=== PATIENT | female | born 1960 | race Caucasian/White ===

== ENCOUNTER 2019-06-10 00:20 | Emergency (ER) | payer BC, MEDICARE ==
[2019-06-10 01:08] VITALS: BP 147/78; PULSE 74
[2019-06-10] MEDS ORDERED: HYDROmorphone 0.5 MG/0.5 ML Syringe IVPUSH ONE ×2 (01:08→02:49)
[2019-06-10] MEDS ORDERED: Ondansetron 4 MG/2 ML SDV IVPUSH ONE ×2 (01:08→03:18)
[2019-06-10] MEDS ORDERED: Sodium Chloride 0.9% 1,000 ML IV SCH ×2 (01:15→03:00)
[2019-06-10] MEDS ORDERED: Pantoprazole 40 MG Tab.CR PO ONE (02:49)
--- NOTE | 2019-06-10 06:50 | EDM.PDOC ---
<Heather Vargas - Last Filed: 06/10/19 06:45> ED HPI GENERAL MEDICAL PROBLEM - General Chief Complaint: Abdominal Pain Stated Complaint: UPPER ABDOMINAL PAIN Time Seen by Provider: 06/10/19 00:55 Source of Information: Reports: Patient History Limitations: Reports: No Limitations - History of Present Illness INITIAL COMMENTS - FREE TEXT/NARRATIVE: pt arrived having upper abdomanal pain. She had gone out to eat and she had chicken breasr and baked potatoe. She developed upper abdomanal pain which was fairly severe. She did not vomit but she was very nauseated. Onset: Today, Sudden Duration: Hour(s): Location: Reports: Abdomen Associated Symptoms: Reports: Nausea/Vomiting Middle Abdomen Pain Score (Numeric/FACES): 4 - Related Data Allergies Allergy/AdvReac Type Severity Reaction Status Date / Time No Known Allergies Allergy Verified 06/10/18 23:30 Home Meds: Home Meds busPIRone [Buspar] 10 mg PO BID 06/08/13 [History] Ascorbic Acid [C-1000] 1,000 mg PO DAILY 03/25/14 [History] Calcium Carbonate/Vitamin D3 [Calcium Carbonate/Vitamin D 1250 MG-200 Unit] 1 tab PO DAILY 03/25/14 [History] Multivitamin W/Iron, Minerals [Flintstones Complete] 1 each PO DAILY 03/25/14 [ History] Diltiazem HCl [Dilt-Xr] 180 mg PO DAILY 08/06/16 [History] Pantoprazole [Protonix] 40 mg PO DAILY 08/06/16 [History] methIMAzole [Methimazole] 5 mg PO DAILY 08/06/16 [History] Aspirin 325 mg PO DAILY 06/10/19 [History] Past Medical History HEENT History: Reports: Cataract, Impaired Vision Cardiovascular History: Reports: Afib, Hypertension Other Cardiovascular History: new onset afib 09/07/15. Musculoskeletal History: Reports: Fracture Psychiatric History: Reports: Anxiety Endocrine/Metabolic History: Reports: Other (See Below) Other Endocrine/Metabolic History: Graves Disease Dermatologic History: Reports: Cellulitis - Infectious Disease History Infectious Disease History: Reports: Chicken Pox - Past Surgical History HEENT Surgical History: Reports: Other (See Below) Social & Family History - Family History Family Medical History: Noncontributory - Tobacco Use Smoking Status *Q: Never Smoker - Caffeine Use Caffeine Use: Reports: Coffee, Soda Caffeine Use Comment: once in a while for coffee and pop - Recreational Drug Use Recreational Drug Use: No - Living Situation & Occupation Living situation: Reports: Occupation: Employed ED ROS GENERAL - Review of Systems Review Of Systems: See Below Constitutional: Reports: No Symptoms HEENT: Reports: No Symptoms Respiratory: Reports: No Symptoms Cardiovascular: Reports: No Symptoms Endocrine: Reports: No Symptoms GI/Abdominal: Reports: Abdominal Pain, Nausea, Other (pt developed acute pain in the upper abdoman. On arrival she was rating this at a 6-7. ) ED EXAM, GI/ABD - Physical Exam Exam: See Below Text/Narrative:: pt arrived with pain in the upper abdoman. She was still quite uncomfortable when she arrived. She was nauseated. Exam Limited By: No Limitations General Appearance: Alert, Anxious, Moderate Distress Ears: Normal TMs Nose: Normal Inspection Throat/Mouth: Normal Inspection Head: Atraumatic Neck: Normal Inspection Respiratory/Chest: No Respiratory Distress Cardiovascular: Regular Rate, Rhythm GI/Abdominal Exam: Tender, Other (pt is tender in the upper abdoman. The rest of the abdoman was neg. ) (Female) Exam: Deferred Rectal (Female) Exam: Deferred Back Exam: Normal Inspection Extremities: Normal Inspection Neurological: Alert, Oriented, Normal Cognition Psychiatric: Normal Affect Course - Vital Signs Last Recorded V/S: Last Vital Signs Temp 95.6 F 06/10/19 01:00 Pulse 74 06/10/19 01:00 Resp 18 06/10/19 01:00 BP 147/78 H 06/10/19 01:00 Pulse Ox 97 06/10/19 01:00 - Orders/Labs/Meds Orders: Active Orders 24 hr Category Date Time Status Sodium Chloride 0.9% [Normal Saline] 1,000 ml Med 06/10/19 01:15 Active IV ASDIRECTED Sodium Chloride 0.9% [Normal Saline] 1,000 ml Med 06/10/19 03:00 Active IV ASDIRECTED Medication Orders Sodium Chloride (Normal Saline) 1,000 mls @ 999 mls/hr IV ASDIRECTED JUAN LUIS Last Admin: 06/10/19 01:46 Dose: 999 mls/hr Sodium Chloride (Normal Saline) 1,000 mls @ 999 mls/hr IV ASDIRECTED JUAN LUIS Last Admin: 06/10/19 03:05 Dose: 999 mls/hr Labs: Laboratory Tests 06/10/19 06/10/19 06/10/19 Range/Units 01:07 01:45 01:45 WBC 5.9 (4.5-11.0) K/uL RBC 4.92 (3.30-5.50) M/uL Hgb 13.6 (12.0-15.0) g/dL Hct 42.2 (36.0-48.0) % MCV 86 (80-98) fL MCH 28 (27-31) pg MCHC 32 (32-36) % Plt Count 189 (150-400) K/uL Neut % (Auto) 70 H (36-66) % Lymph % (Auto) 15 L (24-44) % [place] % (Auto) 12 H (2-6) % Eos % (Auto) 3 (2-4) % Baso % (Auto) 1 (0-1) % Sodium 140 (140-148) mmol/L Potassium 3.5 L (3.6-5.2) mmol/L Chloride 104 (100-108) mmol/L Carbon Dioxide 28 (21-32) mmol/L Anion Gap 11.5 (5.0-14.0) mmol/L BUN 18 (7-18) mg/dL Creatinine 0.9 (0.6-1.0) mg/dL Est Cr Clr Drug Dosing 62.06 mL/min Estimated GFR (MDRD) > 60 (>60) Glucose 111 H (74-106) mg/dL Calcium 9.0 (8.5-10.1) mg/dL Total Bilirubin 0.4 D (0.2-1.0) mg/dL Direct Bilirubin (0.0-0.2) mg/dL Indirect Bilirubin AST 28 (15-37) U/L ALT 31 (12-78) U/L Alkaline Phosphatase 155 H (46-116) U/L C-Reactive Protein (0.0-0.3) mg/dL Total Protein 7.7 (6.4-8.2) g/dL Albumin 3.8 (3.4-5.0) g/dL Globulin 3.9 H (2.3-3.5) g/dL Albumin/Globulin Ratio 1.0 L (1.2-2.2) Amylase (25-115) U/L Lipase (73-393) U/L Urine Color Yellow (YELLOW) Urine Appearance Clear (CLEAR) Urine pH 6.0 (5.0-8.0) Ur Specific [place] >= 1.030 (1.008-1.030) Urine Protein Negative (NEGATIVE) mg/dL Urine Glucose (UA) Negative (NEGATIVE) mg/dL Urine Ketones Negative (NEGATIVE) mg/dL Urine Occult Blood Negative (NEGATIVE) Urine Nitrite Negative (NEGATIVE) Urine Bilirubin Negative (NEGATIVE) Urine Urobilinogen 0.2 (0.2-1.0) EU/dL Ur Leukocyte Esterase Negative (NEGATIVE) Urine RBC 0-5 (0-5) Urine WBC 0-5 (0-5) Ur Epithelial Cells Few Amorphous Sediment Not seen Urine Bacteria Few Urine Mucus Not seen 06/10/19 06/10/19 06/10/19 Range/Units 01:45 02:50 05:31 WBC (4.5-11.0) K/uL RBC (3.30-5.50) M/uL Hgb (12.0-15.0) g/dL Hct (36.0-48.0) % MCV (80-98) fL MCH (27-31) pg MCHC (32-36) % Plt Count (150-400) K/uL Neut % (Auto) (36-66) % Lymph % (Auto) (24-44) % [place] % (Auto) (2-6) % Eos % (Auto) (2-4) % Baso % (Auto) (0-1) % Sodium (140-148) mmol/L Potassium (3.6-5.2) mmol/L Chloride (100-108) mmol/L Carbon Dioxide (21-32) mmol/L Anion Gap (5.0-14.0) mmol/L BUN (7-18) mg/dL Creatinine (0.6-1.0) mg/dL Est Cr Clr Drug Dosing mL/min Estimated GFR (MDRD) (>60) Glucose (74-106) mg/dL Calcium (8.5-10.1) mg/dL Total Bilirubin (0.2-1.0) mg/dL Direct Bilirubin (0.0-0.2) mg/dL Indirect Bilirubin AST (15-37) U/L ALT (12-78) U/L Alkaline Phosphatase (46-116) U/L C-Reactive Protein 0.27 (0.0-0.3) mg/dL Total Protein (6.4-8.2) g/dL Albumin (3.4-5.0) g/dL Globulin (2.3-3.5) g/dL Albumin/Globulin Ratio (1.2-2.2) Amylase 59 (25-115) U/L Lipase 125 83 (73-393) U/L Urine Color (YELLOW) Urine Appearance (CLEAR) Urine pH (5.0-8.0) Ur Specific [place] (1.008-1.030) Urine Protein (NEGATIVE) mg/dL Urine Glucose (UA) (NEGATIVE) mg/dL Urine Ketones (NEGATIVE) mg/dL Urine Occult Blood (NEGATIVE) Urine Nitrite (NEGATIVE) Urine Bilirubin (NEGATIVE) Urine Urobilinogen (0.2-1.0) EU/dL Ur Leukocyte Esterase (NEGATIVE) Urine RBC (0-5) Urine WBC (0-5) Ur Epithelial Cells Amorphous Sediment Urine Bacteria Urine Mucus 06/10/19 Range/Units 05:31 WBC (4.5-11.0) K/uL RBC (3.30-5.50) M/uL Hgb (12.0-15.0) g/dL Hct (36.0-48.0) % MCV (80-98) fL MCH (27-31) pg MCHC (32-36) % Plt Count (150-400) K/uL Neut % (Auto) (36-66) % Lymph % (Auto) (24-44) % [place] % (Auto) (2-6) % Eos % (Auto) (2-4) % Baso % (Auto) (0-1) % Sodium (140-148) mmol/L Potassium (3.6-5.2) mmol/L Chloride (100-108) mmol/L Carbon Dioxide (21-32) mmol/L Anion Gap (5.0-14.0) mmol/L BUN (7-18) mg/dL Creatinine (0.6-1.0) mg/dL Est Cr Clr Drug Dosing mL/min Estimated GFR (MDRD) (>60) Glucose (74-106) mg/dL Calcium (8.5-10.1) mg/dL Total Bilirubin 0.4 (0.2-1.0) mg/dL Direct Bilirubin 0.12 (0.0-0.2) mg/dL Indirect Bilirubin 0.28 AST 24 (15-37) U/L ALT 26 (12-78) U/L Alkaline Phosphatase 130 H (46-116) U/L C-Reactive Protein (0.0-0.3) mg/dL Total Protein 6.6 (6.4-8.2) g/dL Albumin 3.2 L (3.4-5.0) g/dL Globulin 3.4 (2.3-3.5) g/dL Albumin/Globulin Ratio 0.9 L (1.2-2.2) Amylase (25-115) U/L Lipase (73-393) U/L Urine Color (YELLOW) Urine Appearance (CLEAR) Urine pH (5.0-8.0) Ur Specific [place] (1.008-1.030) Urine Protein (NEGATIVE) mg/dL Urine Glucose (UA) (NEGATIVE) mg/dL Urine Ketones (NEGATIVE) mg/dL Urine Occult Blood (NEGATIVE) Urine Nitrite (NEGATIVE) Urine Bilirubin (NEGATIVE) Urine Urobilinogen (0.2-1.0) EU/dL Ur Leukocyte Esterase (NEGATIVE) Urine RBC (0-5) Urine WBC (0-5) Ur Epithelial Cells Amorphous Sediment Urine Bacteria Urine Mucus Meds: Medications Generic Name Dose Route Start Last Admin Trade Name Freq PRN Reason Stop Dose Admin Sodium Chloride 1,000 mls @ 999 mls/hr 06/10/19 01:15 06/10/19 01:46 Normal Saline IV 999 mls/hr ASDIRECTED JUAN LUIS Administration Sodium Chloride 1,000 mls @ 999 mls/hr 06/10/19 03:00 06/10/19 03:05 Normal Saline IV 999 mls/hr ASDIRECTED JUAN LUIS Administration Discontinued Medications Generic Name Dose Route Start Last Admin Trade Name Freq PRN Reason Stop Dose Admin Hydromorphone HCl 0.5 mg 06/10/19 01:08 06/10/19 01:47 Dilaudid IVPUSH 06/10/19 01:09 0.5 mg ONETIME ONE Administration Hydromorphone HCl 0.5 mg 06/10/19 02:49 06/10/19 03:05 Dilaudid IVPUSH 06/10/19 02:50 0.5 mg ONETIME ONE Administration Ondansetron HCl 4 mg 06/10/19 01:08 06/10/19 01:47 Zofran IVPUSH 06/10/19 01:09 4 mg ONETIME ONE Administration Ondansetron HCl 4 mg 06/10/19 03:18 Zofran IVPUSH 06/10/19 03:19 ONETIME ONE Pantoprazole Sodium 40 mg 06/10/19 02:49 06/10/19 03:05 Protonix PO 06/10/19 02:50 40 mg DAILY ONE Administration - Re-Assessments/Exams Free Text/Narrative Re-Assessment/Exam: 06/10/19 06:51 pt had normal liver enzymes except her alk phos was mildly up. Her lipase and amylase was normal. Her wbc was not elevated. She is pn protonix. 06/10/19 06:52 her liver enzymes were repeated this am as was the lipase both were normal. Departure - Departure Disposition: Home, Self-Care 01 Clinical Impression: Abdominal pain Qualifiers: Abdominal location: epigastric Qualified Code(s): R10.13 - Epigastric pain - Discharge Information Referrals: Alma Delia Olivares RN [Primary Care Provider] - Forms: ED Department Discharge Additional Instructions: Outpatient will call you for the test time Brittany Miller will receive the test results and will follow-up with you and coordinate care as needed, call return to the emergency department worsening of symptoms <OfficerMichael - Last Filed: 06/10/19 08:16> Departure - Departure Time of Disposition: 08:15 Condition: Fair - Assessment/Plan Plan: Assessment Acuity = acute Site and laterality = epigastric pain Etiology = unknown etiology Manifestations = none Location of injury = Home Lab values = CBC, CMP, urinalysis unremarkable ultrasound reveals gallstones with a 3.8 mm thick gallbladder wall 6 mm gallbladder duct Plan She remained pain-free at this time abdominal exam is benign, I did review lab work and ultrasound results with her plan is to perform a HIDA scan which will be done this week she. Results will go to her primary care provider Brittany Miller for review and further evaluation as needed, contacted primary care provider is nurse so they are aware of upcoming test. This note was dictated using [employer] voice recognition software please call with any questions on syntax or grammar.
--- NOTE | 2019-06-10 07:17 | CRLUS ---
INDICATION: Upper abdominal pain. COMPARISON: None. TECHNIQUE: Ultrasound examination of the right upper quadrant of the abdomen. FINDINGS: No focal hepatic pathology. Liver is measuring 16.5 cm in maximum vertical dimension. Cholelithiasis. Nondilated common bile duct measuring 6 mm in diameter. No evidence of choledocholithiasis. No pericholecystic fluid collections. Sonographic Edwards`s sign is negative. No pancreatic pathology. Right kidney is measuring 9.8 x 6 x 4.5 cm without any obstructive uropathy or perinephric pathology. Normal echogenic pattern of the renal cortex. Inferior vena cava and upper abdominal aorta are unremarkable. IMPRESSION: Cholelithiasis. Dictated by Moris Davis MD @ Jun 10 2019 7:12AM Signed by Dr. Moris Davis @ Jun 10 2019 7:15AM
== END 2019-06-10 08:29 | disposition home or self-care (01) ==
LOC: JP.ED 00:20
DX: R10.13 Epigastric pain (principal); I10 Essential (primary) hypertension; Z79.899 Other long term (current) drug therapy
CPT/HCPCS: 36415; 76705; 80053; 80076; 81001; 82150; 83690; 85025; 86140; 96361; 96374; 96375; 96376; 99284; A9270; J1170; J2405; J7030

== ENCOUNTER 2020-03-07 15:45 | Observation (INO) | payer BC ==
[2020-03-07] MEDS ORDERED: HYDROmorphone 1 MG/ML Syringe IM ONE (16:58)
[2020-03-07] MEDS ORDERED: LORazepam 1 MG Tab PO ONE (16:58)
--- NOTE | 2020-03-07 17:01 | EDM.PDOC ---
ED HPI GENERAL MEDICAL PROBLEM - General Chief Complaint: Back Pain or Injury Stated Complaint: MEDICAL VIA [facility] Time Seen by Provider: 03/07/20 16:45 Source of Information: Reports: Patient, Family, RN Notes Reviewed History Limitations: Reports: No Limitations - History of Present Illness INITIAL COMMENTS - FREE TEXT/NARRATIVE: 60-year-old female presents emergency department a complaint of low back pain, she arrived by EMS services was given 100 mcg of fentanyl with minimal relief. She was evaluated in clinic 3 days prior for low back pain there is a specific injury she was out trimming the grass admits that she does not bend her knees and bends over at the waist and possibly overdid it. She is using a combination of OxyContin provided by her primary care provider as well as Aleve for the low back pain in combination with Flexeril. She states she has not had much improvement in the pain has gotten significantly worse. She also states she recently had fevers and chills over the last couple of days and is complaining of some chest pain - Related Data Allergies Allergy/AdvReac Type Severity Reaction Status Date / Time No Known Allergies Allergy Verified 06/10/18 23:30 Home Meds: Home Meds busPIRone [Buspar] 10 mg PO BID 06/08/13 [History] Ascorbic Acid [C-1000] 1,000 mg PO DAILY 03/25/14 [History] Calcium Carbonate/Vitamin D3 [Calcium Carbonate/Vitamin D 1250 MG-200 Unit] 1 tab PO DAILY 03/25/14 [History] Multivit with Iron,Minerals [Flintstones Complete] 1 each PO DAILY 03/25/14 [History] Pantoprazole [Protonix] 40 mg PO DAILY 08/06/16 [History] dilTIAZem HCL [Dilt-Xr] 180 mg PO DAILY 08/06/16 [History] Aspirin 325 mg PO DAILY 06/10/19 [History] Cyclobenzaprine [Flexeril] 10 mg PO TID 03/07/20 [History] Levothyroxine 200 mcg PO ACBREAKFAST 03/07/20 [History] oxyCODONE HCl [Oxycontin] 5 mg PO Q4HR PRN 03/07/20 [History] Past Medical History HEENT History: Reports: Cataract, Impaired Vision Cardiovascular History: Reports: Afib, Hypertension Other Cardiovascular History: new onset afib 09/07/15. Gastrointestinal History: Reports: Cholelithiasis Musculoskeletal History: Reports: Back Pain, Chronic, Fracture Psychiatric History: Reports: Anxiety Endocrine/Metabolic History: Reports: Hypothyroidism, Other (See Below) Other Endocrine/Metabolic History: Graves Disease Dermatologic History: Reports: Cellulitis - Infectious Disease History Infectious Disease History: Reports: Chicken Pox - Past Surgical History HEENT Surgical History: Reports: Other (See Below) Musculoskeletal Surgical History: Reports: Knee Replacement Social & Family History - Family History Family Medical History: Noncontributory - Tobacco Use Smoking Status *Q: Never Smoker Second Hand Smoke Exposure: No - Caffeine Use Caffeine Use: Reports: Coffee, Soda Caffeine Use Comment: once in a while for coffee and pop - Recreational Drug Use Recreational Drug Use: No - Living Situation & Occupation Living situation: Reports: Occupation: Employed ED ROS GENERAL - Review of Systems Review Of Systems: See Below Constitutional: Reports: No Symptoms HEENT: Reports: No Symptoms Respiratory: Reports: No Symptoms Cardiovascular: Reports: Chest Pain GI/Abdominal: Reports: No Symptoms : Reports: No Symptoms Musculoskeletal: Reports: Back Pain Skin: Reports: No Symptoms ED EXAM,LOWER BACK PAIN/INJURY - Physical Exam Exam: See Below Exam Limited By: No Limitations General Appearance: Alert, WD/WN, No Apparent Distress Neck: Normal Inspection, Supple, Non-Tender, Full Range of Motion Respiratory/Chest: No Respiratory Distress, Lungs Clear, Normal Breath Sounds, No Accessory Muscle Use, Chest Non-Tender Cardiovascular: Regular Rate, Rhythm, No Murmur GI/Abdominal: Soft, Non-Tender Back Exam: Normal Inspection, Decreased Range of Motion, Muscle Spasm, Paraspinal Tenderness. No: CVA Tenderness (R), CVA Tenderness (L), Vertebral Tenderness Extremities: Normal Inspection, No Pedal Edema Course - Vital Signs Last Recorded V/S: Last Vital Signs Temp 100.1 F 03/07/20 15:50 Pulse 95 03/07/20 15:50 Resp 12 03/07/20 18:05 BP 104/53 L 03/07/20 18:05 Pulse Ox 98 03/07/20 18:05 - Orders/Labs/Meds Orders: Active Orders 24 hr Category Date Time Status Cardiac Monitoring [RC] .As Directed Care 03/07/20 16:57 Active EKG Documentation Completion [RC] ASDIRECTED Care 03/07/20 16:57 Active Peripheral IV Care [RC] . DIRECTED Care 03/07/20 18:59 Ordered Chest 2V [CR] Stat Exams 03/07/20 16:57 Taken CULTURE URINE [RM] Urgent Lab 03/07/20 19:01 Ordered Doxycycline [Vibramycin] 100 mg Med 03/07/20 18:59 Ordered Sodium Chloride 0.9% [Normal Saline] 100 ml IV ONETIME Sodium Chloride 0.9% [Saline Flush] Med 03/07/20 18:59 Ordered 10 ml FLUSH ASDIRECTED PRN Peripheral IV Insertion Adult [OM.PC] Urgent Oth 03/07/20 18:59 Ordered EKG 12 Lead [EK] Stat Ther 03/07/20 16:57 Ordered Medication Orders Doxycycline Hyclate 100 mg/ (Sodium Chloride) 100 mls @ 100 mls/hr IV ONETIME ONE Stop: 03/07/20 19:58 Sodium Chloride (Saline Flush) 10 ml FLUSH ASDIRECTED PRN PRN Reason: Keep Vein Open Labs: Laboratory Tests 03/07/20 03/07/20 03/07/20 Range/Units 17:12 17:12 17:12 WBC 2.2 L (4.5-11.0) K/uL RBC 4.77 (3.30-5.50) M/uL Hgb 13.2 (12.0-15.0) g/dL Hct 40.2 (36.0-48.0) % MCV 84 (80-98) fL MCH 28 (27-31) pg MCHC 33 (32-36) % Plt Count 93 L (150-400) K/uL Add Manual Diff Yes Neutrophils % (Manual) 51 (36-66) % Band Neutrophils % 14 H (5-11) % Lymphocytes % (Manual) 15 L (24-44) % Monocytes % (Manual) 20 H (2-6) % Polychromasia Sodium 130 L (140-148) mmol/L Potassium 3.4 L (3.6-5.2) mmol/L Chloride 94 L (100-108) mmol/L Carbon Dioxide 27 (21-32) mmol/L Anion Gap 12.4 (5.0-14.0) mmol/L BUN 16 (7-18) mg/dL Creatinine 1.0 (0.6-1.0) mg/dL Est Cr Clr Drug Dosing 54.07 mL/min Estimated GFR (MDRD) 57 L (>60) Glucose 108 H (74-106) mg/dL Lactic Acid 1.3 (0.4-2.0) mmol/L Calcium 8.7 (8.5-10.1) mg/dL Total Bilirubin 2.7 H D (0.2-1.0) mg/dL AST 33 (15-37) U/L ALT 47 D (12-78) U/L Alkaline Phosphatase 152 H (46-116) U/L Troponin I < 0.017 (0.000-0.056) ng/mL Total Protein 7.1 (6.4-8.2) g/dL Albumin 3.0 L (3.4-5.0) g/dL Globulin 4.1 H (2.3-3.5) g/dL Albumin/Globulin Ratio 0.7 L (1.2-2.2) Lipase 59 L (73-393) U/L Urine Color (YELLOW) Urine Appearance (CLEAR) Urine pH (5.0-8.0) Ur Specific [place] (1.008-1.030) Urine Protein (NEGATIVE) mg/dL Urine Glucose (UA) (NEGATIVE) mg/dL Urine Ketones (NEGATIVE) mg/dL Urine Occult Blood (NEGATIVE) Urine Nitrite (NEGATIVE) Urine Bilirubin (NEGATIVE) Urine Urobilinogen (0.2-1.0) EU/dL Ur Leukocyte Esterase (NEGATIVE) Urine RBC (0-5) Urine WBC (0-5) Ur Epithelial Cells Amorphous Sediment Urine Bacteria Urine Mucus 03/07/20 Range/Units 17:22 WBC (4.5-11.0) K/uL RBC (3.30-5.50) M/uL Hgb (12.0-15.0) g/dL Hct (36.0-48.0) % MCV (80-98) fL MCH (27-31) pg MCHC (32-36) % Plt Count (150-400) K/uL Add Manual Diff Neutrophils % (Manual) (36-66) % Band Neutrophils % (5-11) % Lymphocytes % (Manual) (24-44) % Monocytes % (Manual) (2-6) % Polychromasia Sodium (140-148) mmol/L Potassium (3.6-5.2) mmol/L Chloride (100-108) mmol/L Carbon Dioxide (21-32) mmol/L Anion Gap (5.0-14.0) mmol/L BUN (7-18) mg/dL Creatinine (0.6-1.0) mg/dL Est Cr Clr Drug Dosing mL/min Estimated GFR (MDRD) (>60) Glucose (74-106) mg/dL Lactic Acid (0.4-2.0) mmol/L Calcium (8.5-10.1) mg/dL Total Bilirubin (0.2-1.0) mg/dL AST (15-37) U/L ALT (12-78) U/L Alkaline Phosphatase (46-116) U/L Troponin I (0.000-0.056) ng/mL Total Protein (6.4-8.2) g/dL Albumin (3.4-5.0) g/dL Globulin (2.3-3.5) g/dL Albumin/Globulin Ratio (1.2-2.2) Lipase (73-393) U/L Urine Color [place] A (YELLOW) Urine Appearance Slightly cloudy A (CLEAR) Urine pH 6.0 (5.0-8.0) Ur Specific [place] 1.015 (1.008-1.030) Urine Protein 100 H (NEGATIVE) mg/dL Urine Glucose (UA) Negative (NEGATIVE) mg/dL Urine Ketones Negative (NEGATIVE) mg/dL Urine Occult Blood Small H (NEGATIVE) Urine Nitrite Negative (NEGATIVE) Urine Bilirubin Small H (NEGATIVE) Urine Urobilinogen 2.0 H (0.2-1.0) EU/dL Ur Leukocyte Esterase Negative (NEGATIVE) Urine RBC 0-5 (0-5) Urine WBC 5-10 H (0-5) Ur Epithelial Cells Moderate Amorphous Sediment Not seen Urine Bacteria Many Urine Mucus Not seen Meds: Medications Generic Name Dose Route Start Last Admin Trade Name Freq PRN Reason Stop Dose Admin Doxycycline Hyclate 100 mg/ 100 mls @ 100 mls/hr 03/07/20 18:59 Sodium Chloride IV 03/07/20 19:58 ONETIME ONE Sodium Chloride 10 ml 03/07/20 18:59 Saline Flush FLUSH ASDIRECTED PRN Keep Vein Open Discontinued Medications Generic Name Dose Route Start Last Admin Trade Name Freq PRN Reason Stop Dose Admin Hydromorphone HCl 1 mg 03/07/20 16:58 03/07/20 17:07 Dilaudid IM 03/07/20 16:59 1 mg ONETIME ONE Administration Ketorolac Tromethamine 60 mg 03/07/20 18:25 03/07/20 18:31 Toradol IM 03/07/20 18:26 60 mg ONETIME ONE Administration Lorazepam 1 mg 03/07/20 16:58 03/07/20 17:06 Ativan PO 03/07/20 16:59 1 mg ONETIME ONE Administration Departure - Departure Time of Disposition: 19:02 Disposition: Admitted As Inpatient 68 Condition: Fair Clinical Impression: Tick bite Qualifiers: Encounter type: initial encounter Qualified Code(s): W57.XXXA - Bitten or stung by nonvenomous insect and other nonvenomous arthropods, initial encounter - Discharge Information Referrals: PCP,None [Primary Care Provider] - Forms: ED Department Discharge Sepsis Event Note (ED) - Evaluation Sepsis Screening Result: No Definite Risk - Focused Exam Vital Signs: Vital Signs Temp Pulse Resp BP Pulse Ox 03/07/20 18:05 12 104/53 L 98 03/07/20 16:53 12 113/50 L 98 03/07/20 15:50 100.1 F 95 20 113/50 L 98 - My Orders Last 24 Hours: My Active Orders 03/07/20 16:57 Cardiac Monitoring [RC] .As Directed EKG Documentation Completion [RC] ASDIRECTED Chest 2V [CR] Stat EKG 12 Lead [EK] Stat 03/07/20 18:59 Peripheral IV Care [RC] . DIRECTED Doxycycline [Vibramycin] 100 mg Sodium Chloride 0.9% [Normal Saline] 100 ml IV ONETIME Sodium Chloride 0.9% [Saline Flush] 10 ml FLUSH ASDIRECTED PRN Peripheral IV Insertion Adult [OM.PC] Urgent 03/07/20 19:01 CULTURE URINE [RM] Urgent - Assessment/Plan Last 24 Hours: My Active Orders 03/07/20 16:57 Cardiac Monitoring [RC] .As Directed EKG Documentation Completion [RC] ASDIRECTED Chest 2V [CR] Stat EKG 12 Lead [EK] Stat 03/07/20 18:59 Peripheral IV Care [RC] . DIRECTED Doxycycline [Vibramycin] 100 mg Sodium Chloride 0.9% [Normal Saline] 100 ml IV ONETIME Sodium Chloride 0.9% [Saline Flush] 10 ml FLUSH ASDIRECTED PRN Peripheral IV Insertion Adult [OM.PC] Urgent 03/07/20 19:01 CULTURE URINE [RM] Urgent Plan: Assessment Acuity = acute Site and laterality = tickborne illness Etiology = Ixodes scapularis Manifestations = none Location of injury = Home Lab values = WBC low at 2.2 consistent leukopenia platelets low at 93 consistent with thrombocytopenia lactic acid normal 1.3 total bilirubin elevated 2.7 consistent hyperbilirubinemia troponin was negative urinalysis reveals urobilinogen at 2.0 WBCs 10-20 consistent with pyuria cultures pending chest x- ray shows no acute process EKG demonstrates sinus rhythm no ST elevations or depression Plan Call discussed case with hospitalist on-call at 1850 kindly agreed to come and evaluate the patient in the emergency department for admission she has been given doxycycline 100 mg x 1 This note was dictated using [employer] voice recognition software please call with any questions on syntax or grammar.
[2020-03-07] MEDS ORDERED: Ketorolac 60 MG/2 ML SDV IM ONE (18:25)
[2020-03-07] MEDS ORDERED: Sodium Chloride 0.9% 10 ML Syringe FLUSH PRN (18:59)
[2020-03-07] MEDS ORDERED: Doxycycline 100 MG in Sodium Chloride 0.9% 100 ML IV ONE (18:59)
--- NOTE | 2020-03-07 20:05 | PCM.HP.2 ---
H&P History of Present Illness - General Date of Service: 03/07/20 Admit Problem/Dx: Admission Diagnosis/Problem Admission Diagnosis/Problem Human anaplasmosis Source of Information: Patient, Family, Provider History Limitations: Reports: No Limitations - History of Present Illness Initial Comments - Free Text/Narative: CC: My back hurt so bad HPI: Dianne presents to the emergency room today with several days of progressive back pain. Initially her pain was moderate in nature and achy. It started in her lower back. The pain started the day after she had been doing some yard work. The next day her pain had progressed to moderate so she went to her regular doctor. He prescribed OxyContin and cyclobenzaprine. Since that time her back pain has continued to worsen. She now has severe pain that starts in the middle of her back and radiates up into her upper back between the shoulder blades and her neck muscles as well as down into her buttocks. The pain was so severe that she could not get out of the chair without an extreme amount of exertion. Pain is achy. Pain pills and muscle relaxers are not helping much. No bowel or bladder incontinence. She has not had any fevers or chills at home. She has had nausea and a decreased appetite. She reports that she has diffuse myalgias as well. No cough, shortness of breath or diarrhea. She has had ticks crawling on her and a few of them have been stuck but none that she saw that were engorged. No other travel or sick contacts. No one else at home is sick. Work-up in the emergency room revealed a white blood cell count of 2000 and low platelets. Bilirubin is mildly elevated. No other obvious source for infection. Anaplasmosis is suspected on top of her acute lower back strain. She will be admitted for pain control and initiation of antibiotics. - Related Data Allergies/Adverse Reactions: Allergies Allergy/AdvReac Type Severity Reaction Status Date / Time No Known Allergies Allergy Verified 06/10/18 23:30 Home Medications: Home Meds busPIRone [Buspar] 10 mg PO BID 06/08/13 [History] Ascorbic Acid [C-1000] 1,000 mg PO DAILY 03/25/14 [History] Calcium Carbonate/Vitamin D3 [Calcium Carbonate/Vitamin D 1250 MG-200 Unit] 1 tab PO DAILY 03/25/14 [History] Multivit with Iron,Minerals [Flintstones Complete] 1 each PO DAILY 03/25/14 [History] Pantoprazole [Protonix] 40 mg PO DAILY 08/06/16 [History] dilTIAZem HCL [Dilt-Xr] 180 mg PO DAILY 08/06/16 [History] Aspirin 325 mg PO DAILY 06/10/19 [History] Cyclobenzaprine [Flexeril] 10 mg PO TID 03/07/20 [History] Levothyroxine 200 mcg PO ACBREAKFAST 03/07/20 [History] oxyCODONE HCl [Oxycontin] 5 mg PO Q4HR PRN 03/07/20 [History] Past Medical History HEENT History: Reports: Cataract, Impaired Vision Cardiovascular History: Reports: Afib, Hypertension Other Cardiovascular History: new onset afib 09/07/15. Gastrointestinal History: Reports: Cholelithiasis Musculoskeletal History: Reports: Back Pain, Chronic, Fracture Psychiatric History: Reports: Anxiety Endocrine/Metabolic History: Reports: Hypothyroidism, Other (See Below) Other Endocrine/Metabolic History: Graves Disease Dermatologic History: Reports: Cellulitis - Infectious Disease History Infectious Disease History: Reports: Chicken Pox - Past Surgical History HEENT Surgical History: Reports: Other (See Below) Musculoskeletal Surgical History: Reports: Knee Replacement Social & Family History - Family History Family Medical History: Noncontributory - Tobacco Use Smoking Status *Q: Never Smoker Second Hand Smoke Exposure: No - Caffeine Use Caffeine Use: Reports: Coffee, Soda Caffeine Use Comment: once in a while for coffee and pop - Alcohol Use Alcohol Use History: No - Recreational Drug Use Recreational Drug Use: No - Living Situation & Occupation Living situation: Reports: Occupation: Employed H&P Review of Systems - Review of Systems: Review Of Systems: See Below Free Text/Narrative: A complete 12 point review of systems was obtained. Pertinent positives and negatives are noted in the history of present illness. All other systems were reviewed and were negative except as noted. Exam - Exam Exam: See Below - Vital Signs Vital Signs: Last Vital Signs Temp 37.8 C 03/07/20 15:50 Pulse 95 03/07/20 15:50 Resp 12 03/07/20 18:05 BP 104/53 L 03/07/20 18:05 Pulse Ox 98 03/07/20 18:05 Weight: 163.293 kg - Exam Quality Assessment: No: Supplemental Oxygen General: Alert, Oriented, Cooperative. No: Mild Distress HEENT: Conjunctiva Clear, Mucosa Moist & [place] Neck: Trachea Midline. No: Lymphadenopathy Lungs: Clear to Auscultation, Normal Respiratory Effort Cardiovascular: Regular Rate, Regular Rhythm GI/Abdominal Exam: Normal Bowel Sounds, Soft, Non-Tender, No Distention Extremities: No Pedal Edema, Other (varicose veins ). No: Increased Warmth Skin: Warm, Dry. No: Rash Neuro Extensive - Mental Status: Alert, Oriented x3, Nl Response to Commands Neuro Extensive - Motor, Sensory, Reflexes: No: Dysarthria, Abnormal Motor, Tremor Psychiatric: Alert, Normal Affect - Patient Data Lab Results Last 24 hrs: Laboratory Results - last 24 hr 03/07/20 03/07/20 03/07/20 Range/Units 17:12 17:12 17:12 WBC 2.2 L (4.5-11.0) K/uL RBC 4.77 (3.30-5.50) M/uL Hgb 13.2 (12.0-15.0) g/dL Hct 40.2 (36.0-48.0) % MCV 84 (80-98) fL MCH 28 (27-31) pg MCHC 33 (32-36) % Plt Count 93 L (150-400) K/uL Add Manual Diff Yes Neutrophils % (Manual) 51 (36-66) % Band Neutrophils % 14 H (5-11) % Lymphocytes % (Manual) 15 L (24-44) % Monocytes % (Manual) 20 H (2-6) % Polychromasia Sodium 130 L (140-148) mmol/L Potassium 3.4 L (3.6-5.2) mmol/L Chloride 94 L (100-108) mmol/L Carbon Dioxide 27 (21-32) mmol/L Anion Gap 12.4 (5.0-14.0) mmol/L BUN 16 (7-18) mg/dL Creatinine 1.0 (0.6-1.0) mg/dL Est Cr Clr Drug Dosing 54.07 mL/min Estimated GFR (MDRD) 57 L (>60) Glucose 108 H (74-106) mg/dL Lactic Acid 1.3 (0.4-2.0) mmol/L Calcium 8.7 (8.5-10.1) mg/dL Total Bilirubin 2.7 H D (0.2-1.0) mg/dL AST 33 (15-37) U/L ALT 47 D (12-78) U/L Alkaline Phosphatase 152 H (46-116) U/L Troponin I < 0.017 (0.000-0.056) ng/mL Total Protein 7.1 (6.4-8.2) g/dL Albumin 3.0 L (3.4-5.0) g/dL Globulin 4.1 H (2.3-3.5) g/dL Albumin/Globulin Ratio 0.7 L (1.2-2.2) Lipase 59 L (73-393) U/L Urine Color (YELLOW) Urine Appearance (CLEAR) Urine pH (5.0-8.0) Ur Specific [place] (1.008-1.030) Urine Protein (NEGATIVE) mg/dL Urine Glucose (UA) (NEGATIVE) mg/dL Urine Ketones (NEGATIVE) mg/dL Urine Occult Blood (NEGATIVE) Urine Nitrite (NEGATIVE) Urine Bilirubin (NEGATIVE) Urine Urobilinogen (0.2-1.0) EU/dL Ur Leukocyte Esterase (NEGATIVE) Urine RBC (0-5) Urine WBC (0-5) Ur Epithelial Cells Amorphous Sediment Urine Bacteria Urine Mucus 03/07/20 Range/Units 17:22 WBC (4.5-11.0) K/uL RBC (3.30-5.50) M/uL Hgb (12.0-15.0) g/dL Hct (36.0-48.0) % MCV (80-98) fL MCH (27-31) pg MCHC (32-36) % Plt Count (150-400) K/uL Add Manual Diff Neutrophils % (Manual) (36-66) % Band Neutrophils % (5-11) % Lymphocytes % (Manual) (24-44) % Monocytes % (Manual) (2-6) % Polychromasia Sodium (140-148) mmol/L Potassium (3.6-5.2) mmol/L Chloride (100-108) mmol/L Carbon Dioxide (21-32) mmol/L Anion Gap (5.0-14.0) mmol/L BUN (7-18) mg/dL Creatinine (0.6-1.0) mg/dL Est Cr Clr Drug Dosing mL/min Estimated GFR (MDRD) (>60) Glucose (74-106) mg/dL Lactic Acid (0.4-2.0) mmol/L Calcium (8.5-10.1) mg/dL Total Bilirubin (0.2-1.0) mg/dL AST (15-37) U/L ALT (12-78) U/L Alkaline Phosphatase (46-116) U/L Troponin I (0.000-0.056) ng/mL Total Protein (6.4-8.2) g/dL Albumin (3.4-5.0) g/dL Globulin (2.3-3.5) g/dL Albumin/Globulin Ratio (1.2-2.2) Lipase (73-393) U/L Urine Color [place] A (YELLOW) Urine Appearance Slightly cloudy A (CLEAR) Urine pH 6.0 (5.0-8.0) Ur Specific [place] 1.015 (1.008-1.030) Urine Protein 100 H (NEGATIVE) mg/dL Urine Glucose (UA) Negative (NEGATIVE) mg/dL Urine Ketones Negative (NEGATIVE) mg/dL Urine Occult Blood Small H (NEGATIVE) Urine Nitrite Negative (NEGATIVE) Urine Bilirubin Small H (NEGATIVE) Urine Urobilinogen 2.0 H (0.2-1.0) EU/dL Ur Leukocyte Esterase Negative (NEGATIVE) Urine RBC 0-5 (0-5) Urine WBC 5-10 H (0-5) Ur Epithelial Cells Moderate Amorphous Sediment Not seen Urine Bacteria Many Urine Mucus Not seen Result Diagrams: 03/07/20 17:12 03/07/20 17:12 Imaging Impressions Last 24 hrs: CXR-images personally reviewed-lungs clear with no mass, infiltrate or effusion. Sepsis Event Note - Evaluation Sepsis Screening Result: No Definite Risk - Focused Exam Vital Signs: Vital Signs Temp Pulse Resp BP Pulse Ox 03/07/20 18:05 12 104/53 L 98 03/07/20 16:53 12 113/50 L 98 03/07/20 15:50 37.8 C 95 20 113/50 L 98 Date Exam was Performed: 03/07/20 Time Exam was Performed: 20:09 *Q Meaningful Use (ADM) - VTE Risk Assess *Q Each Risk Factor Represents 1 Point: Age 41 - 59 years, Obesity ( BMI > 25 k g/m2) Total Score 1 Point Risk Factors: 2 Each Risk Factor Represents 2 Points: None Total Score 2 Point Risk Factors: 0 Each Risk Factor Represents 3 Points: None Total Score 3 Point Risk Factors: 0 Each Risk Factor Represents 5 Points: None Total Score 5 Point Risk Factors: 0 Venous Thromboembolism Risk Factor Score *Q: 2 - Problem List (1) Acute low back pain SNOMED Code(s): 443437534 ICD Code: M54.5 - LOW BACK PAIN Status: Acute Current Visit: Yes Qualifiers: Back pain laterality: bilateral Sciatica presence: without sciatica Qualified Code(s): M54.5 - Low back pain (2) Anaplasmosis SNOMED Code(s): 198265647 ICD Code: A77.49 - OTHER EHRLICHIOSIS Status: Acute Current Visit: Yes Problem List Initiated/Reviewed/Updated: Yes Orders Last 24hrs: Active Orders 24 hr Category Date Time Status Patient Status Manage Transfer [TRANSFER] Routine ADT 03/07/20 19:56 Ordered Cardiac Monitoring [RC] .As Directed Care 03/07/20 16:57 Active EKG Documentation Completion [RC] ASDIRECTED Care 03/07/20 16:57 Active Peripheral IV Care [RC] . DIRECTED Care 03/07/20 18:59 Active Chest 2V [CR] Stat Exams 03/07/20 16:57 Taken CULTURE URINE [RM] Urgent Lab 03/07/20 19:04 Received Sodium Chloride 0.9% [Saline Flush] Med 03/07/20 18:59 Active 10 ml FLUSH ASDIRECTED PRN Peripheral IV Insertion Adult [OM.PC] Urgent Oth 03/07/20 18:59 Ordered Resuscitation Status Routine Resus Stat 03/07/20 19:57 Ordered EKG 12 Lead [EK] Stat Ther 03/07/20 16:57 Ordered Medication Orders Sodium Chloride (Saline Flush) 10 ml FLUSH ASDIRECTED PRN PRN Reason: Keep Vein Open Last Admin: 03/07/20 19:15 Dose: 10 ml Documented by: WILLIAM Assessment/Plan Comment:: ASSESSMENT AND PLAN - Acute lower back pain without sciatica-significant muscular pain with significant muscle spasm noted on examination. Likely secondary to overuse i njury several days ago. No red flags at this time. Pain is significant but did get better after some Toradol. Not safe for outpatient management with the severity of her pain. -Pain control with acetaminophen, Toradol, oxycodone -Heating pad -3 times daily Aspercreme -Increase activity as tolerated -Physical therapy if she is here on Monday -Imaging if things get worse Anaplasmosis, suspected-tick exposure about 1 week ago. Potentially other exposures but no confirmed stock ticks other than 1 week ago. Laboratory studies and symptoms fit well with anaplasmosis. No other obvious source for infection. -Doxycycline -IV fluids Maintenance issues - - DVT prophylaxis -mechanical - GI prophylaxis -PPI - Nutrition -regular - Bear catheter -not indicated CODE STATUS -full code Admission justification -patient will be referred observation status for pain control Disposition -I would anticipate discharge home after the hospital stay Primary care physician -Dr. Vitaly Rucker M.D. - Mortality Measure Prognosis:: Good
[2020-03-07] MEDS ORDERED: Ondansetron 4 MG/2 ML SDV IV PRN (20:45)
[2020-03-07] MEDS ORDERED: HYDROmorphone 1 MG/ML Syringe IVPUSH PRN (20:45)
[2020-03-07] MEDS ORDERED: Ondansetron 4 MG Tab.DIS PO PRN (20:45)
[2020-03-07] MEDS ORDERED: Ketorolac 30 MG/ML SDV IVPUSH PRN (20:45)
[2020-03-07] MEDS: busPIRone 10 MG Tab PO SCH (21:24)
[2020-03-07] MEDS: tiZANidine 4 MG Tab PO PRN (23:33)
[2020-03-07] MEDS: oxyCODONE 5 MG Tab PO PRN (23:33)
[2020-03-08] MEDS ORDERED: Ketorolac 30 MG/ML SDV IVPUSH PRN (00:30)
[2020-03-08] MEDS: Lactobacillus Rhamnosus GG (Probiotic) Cap PO SCH ×3 (01:24→20:24)
[2020-03-08] MEDS: Trolamine Salicylate/Aloe Vera 10% Crm 85 GM Tube TOP SCH ×5 (01:24→20:24)
[2020-03-08] MEDS: Sodium Chloride 0.9% 1,000 ML IV SCH ×2 (02:06→07:46)
[2020-03-08] MEDS: oxyCODONE 5 MG Tab PO PRN ×3 (04:25→21:50)
[2020-03-08] MEDS ORDERED: Potassium Chloride 20 MEQ Tab.ER PO ONE (05:18)
[2020-03-08] MEDS ORDERED: Potassium Chloride 20 MEQ in Premix Bag 1 BAG IV ONE (05:18)
[2020-03-08] MEDS ORDERED: Pantoprazole 40 MG Tab.CR PO SCH (07:30)
[2020-03-08] MEDS ORDERED: Doxycycline 100 MG in Sodium Chloride 0.9% 100 ML IV SCH (08:00)
[2020-03-08] MEDS: Levothyroxine 100 MCG Tab PO SCH (08:02)
[2020-03-08] MEDS: Diltiazem 180 MG Cap.CD PO SCH (08:49)
[2020-03-08] MEDS: busPIRone 10 MG Tab PO SCH ×2 (08:49→20:24)
[2020-03-08] MEDS: Aspirin 325 MG Tab.EC PO SCH (08:49)
[2020-03-08] MEDS: Doxycycline 100 MG in Sodium Chloride 0.9% 100 ML IV SCH ×2 (09:49→19:47)
--- NOTE | 2020-03-08 10:28 | PCM.PN ---
- General Info Date of Service: 03/08/20 Subjective Update: No acute events overnight. She is moving a little better today but still has moderate to moderately severe lower back pain. No significant fevers overnight. She is fairly comfortable while laying in bed but has more pain when she sitting up. Her muscle pains from yesterday including back and arms have improved. Labs are stable with low white count and low platelets. Potassium was low this morning. She is complaining of some radiating pain into her bu ttocks as well as some numbness in the perineum. No incontinence. Functional Status: Reports: Pain Controlled, Tolerating Diet - Review of Systems General: Reports: Fever Musculoskeletal: Reports: Back Pain Neurological: Reports: Numbness - Patient Data Vitals - Most Recent: Last Vital Signs Temp 37.2 C 03/08/20 08:07 Pulse 79 03/08/20 08:07 Resp 12 03/08/20 08:07 BP 109/52 L 03/08/20 08:07 Pulse Ox 93 L 03/08/20 08:07 Weight - Most Recent: 166.741 kg I&O - Last 24 Hours: Intake & Output 03/07/20 03/08/20 03/08/20 22:59 06:59 14:59 Intake Total 800 400 Output Total 200 Balance 600 400 Lab Results Last 24 Hours: Laboratory Results - last 24 hr 03/07/20 03/07/20 03/07/20 Range/Units 17:12 17:12 17:12 WBC 2.2 L (4.5-11.0) K/uL RBC 4.77 (3.30-5.50) M/uL Hgb 13.2 (12.0-15.0) g/dL Hct 40.2 (36.0-48.0) % MCV 84 (80-98) fL MCH 28 (27-31) pg MCHC 33 (32-36) % Plt Count 93 L (150-400) K/uL Add Manual Diff Yes Neutrophils % (Manual) 51 (36-66) % Band Neutrophils % 14 H (5-11) % Lymphocytes % (Manual) 15 L (24-44) % Monocytes % (Manual) 20 H (2-6) % Polychromasia Sodium 130 L (140-148) mmol/L Potassium 3.4 L (3.6-5.2) mmol/L Chloride 94 L (100-108) mmol/L Carbon Dioxide 27 (21-32) mmol/L Anion Gap 12.4 (5.0-14.0) mmol/L BUN 16 (7-18) mg/dL Creatinine 1.0 (0.6-1.0) mg/dL Est Cr Clr Drug Dosing 54.07 mL/min Estimated GFR (MDRD) 57 L (>60) Glucose 108 H (74-106) mg/dL Lactic Acid 1.3 (0.4-2.0) mmol/L Calcium 8.7 (8.5-10.1) mg/dL Total Bilirubin 2.7 H D (0.2-1.0) mg/dL AST 33 (15-37) U/L ALT 47 D (12-78) U/L Alkaline Phosphatase 152 H (46-116) U/L Troponin I < 0.017 (0.000-0.056) ng/mL Total Protein 7.1 (6.4-8.2) g/dL Albumin 3.0 L (3.4-5.0) g/dL Globulin 4.1 H (2.3-3.5) g/dL Albumin/Globulin Ratio 0.7 L (1.2-2.2) Lipase 59 L (73-393) U/L Urine Color (YELLOW) Urine Appearance (CLEAR) Urine pH (5.0-8.0) Ur Specific [place] (1.008-1.030) Urine Protein (NEGATIVE) mg/dL Urine Glucose (UA) (NEGATIVE) mg/dL Urine Ketones (NEGATIVE) mg/dL Urine Occult Blood (NEGATIVE) Urine Nitrite (NEGATIVE) Urine Bilirubin (NEGATIVE) Urine Urobilinogen (0.2-1.0) EU/dL Ur Leukocyte Esterase (NEGATIVE) Urine RBC (0-5) Urine WBC (0-5) Ur Epithelial Cells Amorphous Sediment Urine Bacteria Urine Mucus 03/07/20 03/08/20 03/08/20 Range/Units 17:22 04:10 04:10 WBC 1.8 L (4.5-11.0) K/uL RBC 4.14 (3.30-5.50) M/uL Hgb 11.4 L (12.0-15.0) g/dL Hct 34.6 L (36.0-48.0) % MCV 84 (80-98) fL MCH 28 (27-31) pg MCHC 33 (32-36) % Plt Count 76 L (150-400) K/uL Add Manual Diff Neutrophils % (Manual) (36-66) % Band Neutrophils % (5-11) % Lymphocytes % (Manual) (24-44) % Monocytes % (Manual) (2-6) % Polychromasia Sodium 129 L (140-148) mmol/L Potassium 2.9 L* (3.6-5.2) mmol/L Chloride 96 L (100-108) mmol/L Carbon Dioxide 26 (21-32) mmol/L Anion Gap 9.9 (5.0-14.0) mmol/L BUN 20 H (7-18) mg/dL Creatinine 1.1 H (0.6-1.0) mg/dL Est Cr Clr Drug Dosing 49.15 mL/min Estimated GFR (MDRD) 51 L (>60) Glucose 111 H (74-106) mg/dL Lactic Acid (0.4-2.0) mmol/L Calcium 8.1 L (8.5-10.1) mg/dL Total Bilirubin 1.9 H (0.2-1.0) mg/dL AST 24 (15-37) U/L ALT 37 (12-78) U/L Alkaline Phosphatase 129 H (46-116) U/L Troponin I (0.000-0.056) ng/mL Total Protein 6.0 L (6.4-8.2) g/dL Albumin 2.4 L (3.4-5.0) g/dL Globulin 3.6 H (2.3-3.5) g/dL Albumin/Globulin Ratio 0.7 L (1.2-2.2) Lipase (73-393) U/L Urine Color [place] A (YELLOW) Urine Appearance Slightly cloudy A (CLEAR) Urine pH 6.0 (5.0-8.0) Ur Specific [place] 1.015 (1.008-1.030) Urine Protein 100 H (NEGATIVE) mg/dL Urine Glucose (UA) Negative (NEGATIVE) mg/dL Urine Ketones Negative (NEGATIVE) mg/dL Urine Occult Blood Small H (NEGATIVE) Urine Nitrite Negative (NEGATIVE) Urine Bilirubin Small H (NEGATIVE) Urine Urobilinogen 2.0 H (0.2-1.0) EU/dL Ur Leukocyte Esterase Negative (NEGATIVE) Urine RBC 0-5 (0-5) Urine WBC 5-10 H (0-5) Ur Epithelial Cells Moderate Amorphous Sediment Not seen Urine Bacteria Many Urine Mucus Not seen Med Orders - Current: Current Medications Acetaminophen (Tylenol) 650 mg PO Q4H PRN PRN Reason: Pain (Mild 1-3)/fever Aspirin (Ecotrin) 325 mg PO DAILY [facility] Last Admin: 03/08/20 08:49 Dose: 325 mg Documented by: Buspirone HCl (Buspar) 10 mg PO BID [facility] Last Admin: 03/08/20 08:49 Dose: 10 mg Documented by: Diltiazem HCl (Cardizem Cd) 180 mg PO DAILY [facility] Last Admin: 03/08/20 08:49 Dose: 180 mg Documented by: Hydromorphone HCl (Dilaudid) 1 mg IVPUSH Q2H PRN PRN Reason: Pain (severe 7-10) Sodium Chloride (Normal Saline) 1,000 mls @ 125 mls/hr IV ASDIRECTED [facility] Last Admin: 03/08/20 07:46 Dose: 125 mls/hr Documented by: Doxycycline Hyclate 100 mg/ (Sodium Chloride) 100 mls @ 100 mls/hr IV Q12H [facility] Last Admin: 03/08/20 09:49 Dose: 100 mls/hr Documented by: Ketorolac Tromethamine (Toradol) 30 mg IVPUSH Q6H PRN PRN Reason: Pain (moderate 4-6) Last Admin: 03/08/20 02:03 Dose: 30 mg Documented by: Lactobacillus Rhamnosus (Culturelle) 1 cap PO BID [facility] Last Admin: 03/08/20 08:48 Dose: 1 cap Documented by: Levothyroxine Sodium (Synthroid) 200 mcg PO ACBREAKFAST [facility] Last Admin: 03/08/20 08:02 Dose: 200 mcg Documented by: Magnesium Hydroxide (Milk Of Magnesia) 30 ml PO Q12H PRN PRN Reason: Constipation Ondansetron HCl (Zofran) 4 mg IV Q6H PRN PRN Reason: Nausea/Vomiting Ondansetron HCl (Zofran Odt) 4 mg PO Q6H PRN PRN Reason: Nausea able to take PO Oxycodone HCl (Oxycodone) 5 - 10 mg PO Q4H PRN PRN Reason: Pain Last Admin: 03/08/20 08:45 Dose: 10 mg Documented by: Pantoprazole Sodium (Protonix) 40 mg PO BEDTIME [facility] Senna/Docusate Sodium (Senna Plus) 1 tab PO BID PRN PRN Reason: Constipation Sodium Chloride (Saline Flush) 10 ml FLUSH ASDIRECTED PRN PRN Reason: Keep Vein Open Last Admin: 03/07/20 19:15 Dose: 10 ml Documented by: Tizanidine HCl (Zanaflex) 4 mg PO Q6H PRN PRN Reason: Muscle Spasm Last Admin: 03/07/20 23:33 Dose: 4 mg Documented by: Trolamine Salicylate (Aspercreme 10%) 0 gm TOP TID [facility] Last Admin: 03/08/20 08:51 Dose: 1 applic Documented by: Discontinued Medications Hydromorphone HCl (Dilaudid) 1 mg IM ONETIME ONE Stop: 03/07/20 16:59 Last Admin: 03/07/20 17:07 Dose: 1 mg Documented by: Doxycycline Hyclate 100 mg/ (Sodium Chloride) 100 mls @ 100 mls/hr IV ONETIME ONE Stop: 03/07/20 19:58 Last Admin: 03/07/20 19:16 Dose: 100 mls/hr Documented by: Potassium Chloride 20 meq/ (Premix) 100 mls @ 50 mls/hr IV ONETIME ONE Stop: 03/08/20 07:17 Last Admin: 03/08/20 06:03 Dose: 50 mls/hr Documented by: Ketorolac Tromethamine (Toradol) 60 mg IM ONETIME ONE Stop: 03/07/20 18:26 Last Admin: 03/07/20 18:31 Dose: 60 mg Documented by: Ketorolac Tromethamine (Toradol) 30 mg IVPUSH Q6H PRN PRN Reason: Pain (moderate 4-6) Lidocaine HCl (Xylocaine-Mpf 1%) 2 ml INJECT ONETIME ONE Stop: 03/08/20 05:20 Last Admin: 03/08/20 06:03 Dose: 2 ml Documented by: Lorazepam (Ativan) 1 mg PO ONETIME ONE Stop: 03/07/20 16:59 Last Admin: 03/07/20 17:06 Dose: 1 mg Documented by: Pantoprazole Sodium (Protonix) 40 mg PO ACBREAKFAST [facility] Potassium Chloride (Klor-Con M20) 40 meq PO ONETIME ONE Stop: 03/08/20 05:19 Last Admin: 03/08/20 05:39 Dose: 40 meq Documented by: - Exam Quality Assessment: No: Supplemental Oxygen General: Alert, Oriented, Cooperative, No Acute Distress Lungs: Normal Respiratory Effort Cardiovascular: Regular Rate, Regular Rhythm GI/Abdominal Exam: Soft, No Distention Extremities: No Pedal Edema Psy/Mental Status: Alert, Normal Affect Sepsis Event Note - Evaluation Sepsis Screening Result: No Definite Risk - Focused Exam Vital Signs: Vital Signs Temp Pulse Resp BP BP Pulse Ox 03/08/20 08:07 37.2 C 79 12 109/52 L 93 L 03/08/20 04:25 37.4 C 79 16 104/50 L 94 L 03/08/20 02:08 144/90 H 03/08/20 01:57 37.7 C 81 18 95 Date Exam was Performed: 03/08/20 Time Exam was Performed: 14:15 - Problem List & Annotations (1) Acute low back pain SNOMED Code(s): 800893796 Code(s): M54.5 - LOW BACK PAIN Status: Acute Current Visit: Yes Qualifiers: Back pain laterality: bilateral Sciatica presence: without sciatica Qualified Code(s): M54.5 - Low back pain (2) Anaplasmosis SNOMED Code(s): 334126914 Code(s): A77.49 - OTHER EHRLICHIOSIS Status: Acute Current Visit: Yes - Problem List Review Problem List Initiated/Reviewed/Updated: Yes - My Orders Last 24 Hours: My Active Orders 03/07/20 Dinner Regular Diet [DIET] 03/07/20 19:57 Resuscitation Status Routine 03/07/20 20:45 Acetaminophen [Tylenol] 650 mg PO Q4H PRN Docusate Sodium/Sennosides [Senna Plus] 1 tab PO BID PRN HYDROmorphone [Dilaudid] 1 mg IVPUSH Q2H PRN Magnesium Hydroxide [Milk of Magnesia] 30 ml PO Q12H PRN Ondansetron [Zofran ODT] 4 mg PO Q6H PRN Ondansetron [Zofran] 4 mg IV Q6H PRN Sodium Chloride 0.9% [Normal Saline] 1,000 ml IV ASDIRECTED oxyCODONE 5 - 10 mg PO Q4H PRN tiZANidine [Zanaflex] 4 mg PO Q6H PRN 03/07/20 20:45 Patient Status [ADT] Routine Antiembolic Devices [RC] .Routine Communication Order [RC] ROUTINE Cooling Warming Measures [RC] ASDIRECTED Intake and Output [RC] QSHIFT Notify Provider Vital Signs [RC] ASDIRECTED Oxygen Therapy [RC] PRN Up With Assistance [RC] ASDIRECTED Vital Signs [RC] Q4H Heat Therapy [OM.PC] Routine Sequential Compression Device [OM.PC] Routine 03/07/20 21:00 Lactobacillus Rhamnosus GG [Culturelle] 1 cap PO BID Trolamine Salicylate/Aloe Vera [Aspercreme 10%] 0 gm TOP TID busPIRone [Buspar] 10 mg PO BID 03/08/20 00:30 Ketorolac [Toradol] 30 mg IVPUSH Q6H PRN 03/08/20 07:30 Levothyroxine [Synthroid] 200 mcg PO ACBREAKFAST 03/08/20 08:00 Doxycycline [Vibramycin] 100 mg Sodium Chloride 0.9% [Normal Saline] 100 ml IV Q12H 03/08/20 09:00 Aspirin [Ecotrin] 325 mg PO DAILY Diltiazem [Cardizem CD] 180 mg PO DAILY 03/08/20 10:25 Lumbar Spine w wo Cont [CT] Routine 03/08/20 10:27 CRP [C-REACTIVE PROTEIN] [CHEM] Routine 03/08/20 10:30 NS + KCl 20mEq/L [Normal Saline with 20 mEq KCl] 1,000 ml IV ASDIRECTED 03/08/20 21:00 Pantoprazole [ProTONIX] 40 mg PO BEDTIME 03/09/20 05:00 BASIC METABOLIC PANEL,BMP [CHEM] Timed CBC W/O DIFF,HEMOGRAM [HEME] Timed (1) - Plan Plan:: ASSESSMENT AND PLAN - Acute lower back pain without sciatica-significant muscular pain with significant muscle spasm noted on examination. Likely secondary to overuse injury several days ago. Feeling and moving a little better today. She is complaining of some saddle anesthesia. CT scan of the lumbar spine with and without contrast showed bulging disks at L3/L4 and L4/L5 with some central canal stenosis at L4/L5. She has bilateral foraminal stenosis little bit more on the right than on the left at both levels. -Trial of steroids -Pain control with acetaminophen, Toradol, oxycodone -Heating pad -3 times daily Aspercreme -Increase activity as tolerated -Physical therapy if she is here on Monday -Consider epidural steroid injections Anaplasmosis, suspected-tick exposure about 1 week ago. Laboratory studies stable. Low-grade fever early this afternoon. -Doxycycline -Continue IV fluids Maintenance issues - - DVT prophylaxis -mechanical - GI prophylaxis -PPI - Nutrition -regular Admission justification -patient will be referred observation status for pain control Disposition -I would anticipate discharge home after the hospital stay Primary care physician -Dr. Vitaly Rucker M.D.
--- NOTE | 2020-03-08 12:25 | CRLCT ---
Indication: Acute low back pain with radiculopathy. Fever. Technique: Noncontrast axial CT of the lumbar spine with coronal and sagittal reformats are provided. Comparison: No prior studies are available for comparison at this institution. Findings: Examination is limited by beam hardening artifact due to body habitus. Lumbar lordosis is preserved. Vertebral body heights are maintained. No aggressive osseous lesions. No evidence of acute fracture. There is grade 1 anterolisthesis at L4-5. There are 5 lumbar type vertebral bodies. Sacroiliac joint degenerative changes bilaterally. T12-L1: No spinal canal stenosis or neural foramina narrowing. L1-2: Mild disc height loss. Mild disc bulge. No spinal canal stenosis. No neural foramina narrowing. L2-3: Mild disc bulge. No significant spinal canal stenosis or neural foramina narrowing. L3-4: Vacuum disc phenomenon. Disc bulge. Gas in the ventral epidural space most likely secondary to vacuum disc phenomenon within disc protrusion with suggestion of moderate spinal canal stenosis at this level. Moderate right and mild left neural foramina narrowing. Moderate right and mild left facet arthrosis. L4-5: There is 5 mm grade 1 anterolisthesis with diffuse uncovering of the disc and severe facet arthrosis with vacuum disc phenomenon bilaterally. Severe spinal canal stenosis. Severe bilateral neural foramina narrowing with impingement of exiting L4 nerves. L5-S1: Severe bilateral facet arthrosis. No definite spinal canal stenosis or S1 nerve root impingement. Severe bilateral neural foramina narrowing with impingement of bilateral L5 nerve roots. Large left lateral osteophyte likely also impinges the left L5 exiting nerve Impression: 1. No acute osseous abnormality. Degenerative grade 1 anterolisthesis at L4-5. Lumbar lordosis is preserved. 2. At L3-4 there is gas in the ventral epidural space most likely secondary to vacuum disc phenomenon within the disc extrusion resulting in likely moderate spinal canal stenosis at this level. Moderate right and mild left neural foramina narrowing. 3. At L4-5 there is 5 millimeter degenerative grade 1 anterolisthesis with diffuse disc bulge and severe facet arthrosis resulting in severe spinal canal stenosis. Severe bilateral neural foramina narrowing with impingement of the exiting L4 nerves. 4. At L5-S1 there is severe bilateral facet arthrosis resulting in severe bilateral neural foraminal narrowing with impingement of the L5 nerve roots. Large left lateral osteophyte likely also impinges the exited left L5 nerve. 5. Examination is limited by beam hardening artifact due to body habitus. Please note that all CT scans at this facility use dose modulation, iterative reconstruction, and/or weight-based dosing when appropriate to reduce radiation dose to as low as reasonably achievable. Dictated by Bryan Keller MD @ Mar 08 2020 9:40PM Signed by Dr. Bryan Keller @ Mar 08 2020 9:48PM
[2020-03-08] MEDS: tiZANidine 4 MG Tab PO PRN (12:49)
[2020-03-08] MEDS ORDERED: Dexamethasone 4 MG Tab PO ONE (13:30)
[2020-03-08] MEDS ORDERED: Sodium Chloride 0.9% 500 ML IV SCH (14:15)
[2020-03-08] MEDS: NS + KCl 20mEq/L 1,000 ML IV SCH (15:17)
[2020-03-08] MEDS: Acetaminophen 325 MG Tab PO PRN (17:08)
[2020-03-08] MEDS: Magnesium Hydroxide 400 MG/5 ML Susp 30 ML Cup PO PRN (17:09)
[2020-03-08] MEDS: Pantoprazole 40 MG Tab.CR PO SCH (20:24)
[2020-03-09] MEDS: NS + KCl 20mEq/L 1,000 ML IV SCH (01:58)
[2020-03-09] MEDS: Levothyroxine 100 MCG Tab PO SCH ×2 (05:41→07:44)
[2020-03-09] MEDS: busPIRone 10 MG Tab PO SCH ×2 (08:14→20:45)
[2020-03-09] MEDS: Doxycycline 100 MG in Sodium Chloride 0.9% 100 ML IV SCH (08:14)
[2020-03-09] MEDS: Dexamethasone 4 MG Tab PO SCH ×2 (08:14→17:15)
[2020-03-09] MEDS: Aspirin 325 MG Tab.EC PO SCH (08:15)
[2020-03-09] MEDS: Diltiazem 180 MG Cap.CD PO SCH (08:16)
[2020-03-09] MEDS: Trolamine Salicylate/Aloe Vera 10% Crm 85 GM Tube TOP SCH ×3 (08:16→20:46)
[2020-03-09] MEDS: Lactobacillus Rhamnosus GG (Probiotic) Cap PO SCH ×2 (08:16→20:45)
[2020-03-09] MEDS: Cyclobenzaprine 10 MG Tab PO PRN ×2 (08:22→23:01)
[2020-03-09] MEDS: oxyCODONE 5 MG Tab PO PRN ×2 (11:06→19:44)
[2020-03-09] MEDS ORDERED: Ibuprofen 600 MG Tab PO PRN (12:07)
--- NOTE | 2020-03-09 12:14 | PCM.PN ---
- General Info Date of Service: 03/09/20 Subjective Update: No acute events overnight. Lower back pain is better but not resolved. Still having a fair amount of mid to upper back pain. This is mostly muscular with changes in position and arm movements. Minimal but some residual numbness in the perineal area. Less radiating pain into the buttocks. She is moving better. Still having some hallucinations though these are better. She was able to shower. No fevers but she did have a couple episodes of diaphoresis. White count is still low but stable. Functional Status: Reports: Pain Controlled, Tolerating Diet - Review of Systems General: Reports: Weakness. Denies: Fever Musculoskeletal: Reports: Back Pain - Patient Data Vitals - Most Recent: Last Vital Signs Temp 36.1 C 03/09/20 11:30 Pulse 79 03/09/20 11:30 Resp 16 03/09/20 11:30 BP 116/63 03/09/20 11:30 Pulse Ox 100 03/09/20 11:30 Weight - Most Recent: 166.741 kg I&O - Last 24 Hours: Intake & Output 03/08/20 03/09/20 03/09/20 22:59 06:59 14:59 Intake Total 1200 2762 120 Output Total 875 2550 650 Balance 325 212 -530 Lab Results Last 24 Hours: Laboratory Results - last 24 hr 03/09/20 03/09/20 Range/Units 04:10 04:10 WBC 1.5 L (4.5-11.0) K/uL RBC 4.44 (3.30-5.50) M/uL Hgb 12.3 (12.0-15.0) g/dL Hct 37.0 (36.0-48.0) % MCV 83 (80-98) fL MCH 28 (27-31) pg MCHC 33 (32-36) % Plt Count 95 L (150-400) K/uL Sodium 129 L (140-148) mmol/L Potassium 3.8 (3.6-5.2) mmol/L Chloride 97 L (100-108) mmol/L Carbon Dioxide 25 (21-32) mmol/L Anion Gap 10.8 (5.0-14.0) mmol/L BUN 19 H (7-18) mg/dL Creatinine 0.9 (0.6-1.0) mg/dL Est Cr Clr Drug Dosing 60.07 mL/min Estimated GFR (MDRD) > 60 (>60) Glucose 132 H (74-106) mg/dL Calcium 8.6 (8.5-10.1) mg/dL Lane Results Last 24 Hours: Microbiology 03/07/20 19:04 Urine Culture - Preliminary Urine, Clean Catch Med Orders - Current: Current Medications Acetaminophen (Tylenol) 650 mg PO Q4H PRN PRN Reason: Pain (Mild 1-3)/fever Last Admin: 03/08/20 17:08 Dose: 650 mg Documented by: Aspirin (Ecotrin) 325 mg PO DAILY [facility] Last Admin: 03/09/20 08:15 Dose: 325 mg Documented by: Buspirone HCl (Buspar) 10 mg PO BID [facility] Last Admin: 03/09/20 08:14 Dose: 10 mg Documented by: Cyclobenzaprine HCl (Flexeril) 10 mg PO Q8H PRN PRN Reason: Muscle Spasm Last Admin: 03/09/20 08:22 Dose: 10 mg Documented by: Dexamethasone (Dexamethasone) 4 mg PO BIDMEALS [facility] Last Admin: 03/09/20 08:14 Dose: 4 mg Documented by: Diltiazem HCl (Cardizem Cd) 180 mg PO DAILY [facility] Last Admin: 03/09/20 08:16 Dose: 180 mg Documented by: Doxycycline Hyclate (Vibramycin) 100 mg PO BID [facility] Ibuprofen (Motrin) 600 mg PO Q6H PRN PRN Reason: Pain (moderate 4-6) Lactobacillus Rhamnosus (Culturelle) 1 cap PO BID [facility] Last Admin: 03/09/20 08:16 Dose: 1 cap Documented by: Levothyroxine Sodium (Synthroid) 200 mcg PO ACBREAKFAST [facility] Last Admin: 03/09/20 07:44 Dose: Not Given Documented by: Magnesium Hydroxide (Milk Of Magnesia) 30 ml PO Q12H PRN PRN Reason: Constipation Last Admin: 03/08/20 17:09 Dose: 30 ml Documented by: Ondansetron HCl (Zofran) 4 mg IV Q6H PRN PRN Reason: Nausea/Vomiting Ondansetron HCl (Zofran Odt) 4 mg PO Q6H PRN PRN Reason: Nausea able to take PO Oxycodone HCl (Oxycodone) 5 - 10 mg PO Q4H PRN PRN Reason: Pain Last Admin: 03/09/20 11:06 Dose: 10 mg Documented by: Pantoprazole Sodium (Protonix) 40 mg PO BEDTIME [facility] Last Admin: 03/08/20 20:24 Dose: 40 mg Documented by: Senna/Docusate Sodium (Senna Plus) 1 tab PO BID PRN PRN Reason: Constipation Sodium Chloride (Saline Flush) 10 ml FLUSH ASDIRECTED PRN PRN Reason: Keep Vein Open Last Admin: 03/07/20 19:15 Dose: 10 ml Documented by: Trolamine Salicylate (Aspercreme 10%) 0 gm TOP TID [facility] Last Admin: 03/09/20 08:16 Dose: 1 applic Documented by: Discontinued Medications Dexamethasone (Dexamethasone) 8 mg PO ONETIME ONE Stop: 03/08/20 13:31 Last Admin: 03/08/20 14:14 Dose: 8 mg Documented by: Hydromorphone HCl (Dilaudid) 1 mg IM ONETIME ONE Stop: 03/07/20 16:59 Last Admin: 03/07/20 17:07 Dose: 1 mg Documented by: Hydromorphone HCl (Dilaudid) 1 mg IVPUSH Q2H PRN PRN Reason: Pain (severe 7-10) Doxycycline Hyclate 100 mg/ (Sodium Chloride) 100 mls @ 100 mls/hr IV ONETIME ONE Stop: 03/07/20 19:58 Last Admin: 03/07/20 19:16 Dose: 100 mls/hr Documented by: Sodium Chloride (Normal Saline) 1,000 mls @ 125 mls/hr IV ASDIRECTED [facility] Last Admin: 03/08/20 07:46 Dose: 125 mls/hr Documented by: Potassium Chloride 20 meq/ (Premix) 100 mls @ 50 mls/hr IV ONETIME ONE Stop: 03/08/20 07:17 Last Admin: 03/08/20 06:03 Dose: 50 mls/hr Documented by: Doxycycline Hyclate 100 mg/ (Sodium Chloride) 100 mls @ 100 mls/hr IV Q12H [facility] Last Admin: 03/09/20 08:14 Dose: 100 mls/hr Documented by: Potassium Chloride/Sodium Chloride (Normal Saline With 20 Meq Kcl) 1,000 mls @ 100 mls/hr IV ASDIRECTED [facility] Last Admin: 03/09/20 01:58 Dose: 100 mls/hr Documented by: Sodium Chloride (Normal Saline) 500 mls @ 500 mls/hr IV ASDIRECTED [facility] Stop: 03/08/20 15:16 Last Admin: 03/08/20 14:20 Dose: 500 mls/hr Documented by: Ketorolac Tromethamine (Toradol) 60 mg IM ONETIME ONE Stop: 03/07/20 18:26 Last Admin: 03/07/20 18:31 Dose: 60 mg Documented by: Ketorolac Tromethamine (Toradol) 30 mg IVPUSH Q6H PRN PRN Reason: Pain (moderate 4-6) Ketorolac Tromethamine (Toradol) 30 mg IVPUSH Q6H PRN PRN Reason: Pain (moderate 4-6) Last Admin: 03/08/20 02:03 Dose: 30 mg Documented by: Lidocaine HCl (Xylocaine-Mpf 1%) 2 ml INJECT ONETIME ONE Stop: 03/08/20 05:20 Last Admin: 03/08/20 06:03 Dose: 2 ml Documented by: Lorazepam (Ativan) 1 mg PO ONETIME ONE Stop: 03/07/20 16:59 Last Admin: 03/07/20 17:06 Dose: 1 mg Documented by: Pantoprazole Sodium (Protonix) 40 mg PO ACBREAKFAST [facility] Potassium Chloride (Klor-Con M20) 40 meq PO ONETIME ONE Stop: 03/08/20 05:19 Last Admin: 03/08/20 05:39 Dose: 40 meq Documented by: Tizanidine HCl (Zanaflex) 4 mg PO Q6H PRN PRN Reason: Muscle Spasm Last Admin: 03/08/20 12:49 Dose: 4 mg Documented by: - Exam Quality Assessment: No: Supplemental Oxygen General: Alert, Oriented, Cooperative, No Acute Distress Lungs: Normal Respiratory Effort GI/Abdominal Exam: Soft, No Distention Extremities: No Pedal Edema Psy/Mental Status: Alert, Normal Affect Sepsis Event Note - Evaluation Sepsis Screening Result: No Definite Risk - Focused Exam Vital Signs: Vital Signs Temp Pulse Resp BP BP Pulse Ox 03/09/20 11:30 36.1 C 79 16 116/63 100 03/09/20 07:24 35.3 C L 78 16 119/60 98 03/09/20 02:00 34.7 C L 66 16 117/67 96 Date Exam was Performed: 03/09/20 Time Exam was Performed: 13:31 - Problem List & Annotations (1) Acute low back pain SNOMED Code(s): 061602166 Code(s): M54.5 - LOW BACK PAIN Status: Acute Current Visit: Yes Qualifiers: Back pain laterality: bilateral Sciatica presence: without sciatica Qualified Code(s): M54.5 - Low back pain (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 Code(s): A77.49 - OTHER EHRLICHIOSIS Status: Acute Current Visit: Yes - Problem List Review Problem List Initiated/Reviewed/Updated: Yes - My Orders Last 24 Hours: My Active Orders 03/08/20 14:10 Cyclobenzaprine [Flexeril] 10 mg PO Q8H PRN 03/08/20 21:00 Pantoprazole [ProTONIX] 40 mg PO BEDTIME 03/09/20 08:00 dexAMETHasone 4 mg PO BIDMEALS 03/09/20 12:06 Peripheral IV Discontinue [OM.PC] Routine 03/09/20 12:07 Ibuprofen [Motrin] 600 mg PO Q6H PRN 03/09/20 21:00 Doxycycline [Vibramycin] 100 mg PO BID 03/10/20 05:00 BASIC METABOLIC PANEL,BMP [CHEM] Timed CBC W/O DIFF,HEMOGRAM [HEME] Timed (1) - Plan Plan:: ASSESSMENT AND PLAN - Acute lower back pain without sciatica-significant muscular pain with significant muscle spasm noted on examination. Likely secondary to overuse injury complicated by bulging disks at L3/L4 and L4/L5. She is clinically improving but still fairly limited with her mobility. She is having some hallucinations with medications but this is getting better with changes made yesterday afternoon. -Continue dexamethasone -Pain control with acetaminophen, Toradol, oxycodone -Heating pad -3 times daily Aspercreme -Increase activity as tolerated -Physical therapy -Consider epidural steroid injections as an outpatient Hypokalemia-improved with supplementation. 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 Laboratory studies stable. No fevers but still having some episodes of diaphoresis. -Doxycycline Maintenance issues - - DVT prophylaxis -mechanical - GI prophylaxis -PPI - Nutrition -regular Admission justification -patient will be referred observation status for pain control Disposition -I would anticipate discharge home after the hospital stay, hopefully tomorrow if stable overnight Primary care physician -Dr. Vitaly Rucker M.D.
[2020-03-09] MEDS: Magnesium Hydroxide 400 MG/5 ML Susp 30 ML Cup PO PRN (20:45)
[2020-03-09] MEDS: Pantoprazole 40 MG Tab.CR PO SCH (20:47)
[2020-03-09] MEDS: Doxycycline 100 MG Cap PO SCH (20:47)
[2020-03-10] MEDS: Acetaminophen 325 MG Tab PO PRN (02:50)
[2020-03-10 06:50] VITALS: BP 131/74; PULSE 84
[2020-03-10] MEDS: Levothyroxine 100 MCG Tab PO SCH (07:41)
[2020-03-10] MEDS: Dexamethasone 4 MG Tab PO SCH (08:39)
[2020-03-10] MEDS: Lactobacillus Rhamnosus GG (Probiotic) Cap PO SCH (08:39)
[2020-03-10] MEDS: Doxycycline 100 MG Cap PO SCH (08:39)
[2020-03-10] MEDS: Trolamine Salicylate/Aloe Vera 10% Crm 85 GM Tube TOP SCH (08:39)
[2020-03-10] MEDS: busPIRone 10 MG Tab PO SCH (08:39)
[2020-03-10] MEDS: Diltiazem 180 MG Cap.CD PO SCH (08:40)
[2020-03-10] MEDS: Magnesium Hydroxide 400 MG/5 ML Susp 30 ML Cup PO PRN (08:48)
[2020-03-10] MEDS ORDERED: Cephalexin 250 MG Cap PO SCH (09:00)
[2020-03-10] MEDS: Aspirin 325 MG Tab.EC PO SCH (09:24)
--- NOTE | 2020-03-10 09:34 | CR ---
CHEST: 2 view CLINICAL HISTORY:Chest pain COMPARISON:2016 FINDINGS: Patient is position to moderately lordotic exaggerating heart size. Lung markings are exaggerated by patient body habitus. The heart size, pulmonary vascularity and hilar structures are normal. No infiltrate effusion or pneumothorax is seen. IMPRESSION: Limited study No acute cardiopulmonary process.
--- NOTE | 2020-03-10 12:01 | PCM.DCSUM1 ---
Discharge Summary - Hospital Course Brief History: 60-year-old female with history of obesity with a BMI >60 and acquired hypothyroidism who presented with acute lower and mid back pain as well as fever. 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 Diagnosis: Stroke: No - Discharge Data Discharge Date: 03/10/20 Discharge Disposition: Home, Self-Care 01 Condition: Good - Referral to Home Health Primary Care Physician: PCP None - Discharge Diagnosis/Problem(s) (1) Lumbar disc disease with radiculopathy SNOMED Code(s): 349575634 ICD Code: M51.16 - INTERVERTEBRAL DISC DISORDERS W RADICULOPATHY, LUMBAR REGION Status: Acute Current Visit: Yes (2) Acute low back pain SNOMED Code(s): 124122191 ICD Code: M54.5 - LOW BACK PAIN Status: Acute Current Visit: Yes Qualifiers: Back pain laterality: bilateral Sciatica presence: without sciatica Qualified Code(s): M54.5 - Low back pain (3) Anaplasmosis SNOMED Code(s): 308114814 ICD Code: A77.49 - OTHER EHRLICHIOSIS Status: Acute Current Visit: Yes (4) Acute cystitis without hematuria SNOMED Code(s): 93476145 ICD Code: N30.00 - ACUTE CYSTITIS WITHOUT HEMATURIA Status: Acute Current Visit: Yes - Patient Summary/Data Consults: Consultations 03/09/20 13:33 Consult to Physical Therapy [PT Evaluation and Treatment] [CONS] Routine Please Evaluate and Treat. PT Reason for Consult: weakness and back pain Pending Discharge: Yes Discharge Disposition: Home This query below is only for informational purposes and is not editable. Admission Diagnosis/Problem: Human anaplasmosis Hospital Course: Dianne presented to the emergency room with acute lower back pain and weakness. Work-up in the emergency room also revealed evidence of a fever. Her white blood cell count was low and her platelets were low raising concern for anaplasmosis or other tickborne illness. Urinalysis was mildly suggestive of infection and a urine culture was set up. She had significant pain and was not able to ambulate so she was admitted for pain control as well as management of the anaplasmosis. She received IV fluids as well as a variety of pain medications. We did start her on doxycycline to cover tickborne illness. In the morning after admission she was feeling a little better. Her temperature curve had improved slightly. She did continue to have some episodes of diaphoresis. The next morning she was reporting some numbness in the perineal area so we did perform a CT scan of the lumbar spine. This showed bulging disks at L3/L4 and L4/L5 but no findings that would raise concern for cauda equina syndrome. Symptomatically she was doing quite a bit better and was able to get to the bathroom and back. She was still quite weak. She was hallucinating, probably from the muscle relaxer. We did start her on a steroid in addition to the other pain control modalities. Urine culture was growing a gram-negative keyur but she seemed to be doing well so we did not expand the antibiotic coverage. By the next morning she is doing a fair amount better again. She continues to hallucinate though this has improved. She is moving around better but still somewhat limited. Her fevers have resolved. Her urine culture did grow out Proteus. At this point we transitioned her to oral antibiotics for the urinary tract infection along with the doxycycline. She had some mild hypokalemia that was replaced. Overall she was doing a fair amount better but worried about being safe at home with the hallucinations and ongoing weakness. Over the next 24 hours we had a more impressive improvement. She is able to get around the room independently. She has been walking out in the hallway. She has not had any fevers. Her platelet and white blood cell count are starting to get close to normal. Her potassium is normal. Her appetite is improving. She feels well enough to go home at this point. She is interested in outpatient physical therapy. She will be on Doxy for a total of 21 days. She is going to be on cephalexin for 3 days total for the urinary tract infection. She will be discharged home in fair condition and has follow-up scheduled next week. - Patient Instructions Diet: Regular Diet as Tolerated Activity: As Tolerated Driving: Do Not Drive (if taking pain pills or muscle relaxer ) Showering/Bathing: May Shower Notify Provider of: Fever, Increased Pain Other/Special Instructions: 1. You were in in the hospital for management of a combination of back pain as well as fever. These were caused by 2 different problems. The back pain was a result of bulging disks at 2 levels in your lower lumbar spine including L3/L4 and L4/L5. The fever was caused by an infection with anaplasmosis. Both of these conditions have been improving with therapies provided here in the hospital. For the lower back, I recommend that you take dexamethasone 4 mg daily for 5 more doses and then stop. You should also start taking meloxicam 15 mg once daily to help reduce inflammation along with the steroid. You may use acetaminophen for mild pain and oxycodone for more intense pain. You should not take ibuprofen or naproxen/Aleve while you are taking meloxicam. I have placed a referral to physical therapy to help improve your strength and endurance as you recover from the bulging disks. For the anaplasmosis infection, I recommend that you take doxycycline 100 mg twice daily for 36 more doses. Your first dose outside of the hospital will be due tonight. You should take this antibiotic with food to avoid stomach upset. Doxycycline can make your skin more sensitive to the sun and increase your risk of sunburn. You should use a high potency SPF sunscreen or cover any potentially exposed skin while you are outside and taking the antibiotic. 2. During the hospital stay we discovered that you had an infection in your bladder. This grew out a bacteria called Proteus. You will need a separate antibiotic to treat this infection. Please take the cephalexin (Keflex) 500 mg twice daily for 5 doses. Your first dose outside of the hospital will be due tonight. 3. Continue taking your usual home medications as previously prescribed with the exception of ibuprofen or naproxen/Aleve. 4. Follow up with your primary care as scheduled. - Discharge Plan *PRESCRIPTION DRUG MONITORING PROGRAM REVIEWED*: Not Applicable *COPY OF PRESCRIPTION DRUG MONITORING REPORT IN PATIENT PRIYANK: Not Applicable Prescriptions/Med Rec: cephALEXin [Cephalexin] 500 mg PO BID #5 capsule dexAMETHasone [Dexamethasone] 4 mg PO DAILY #5 tablet Meloxicam 15 mg PO DAILY #30 tablet Doxycycline [Vibramycin] 100 mg PO BID #36 cap Home Medications: Home Meds busPIRone [Buspar] 10 mg PO BID 06/08/13 [History] Ascorbic Acid [C-1000] 1,000 mg PO DAILY 03/25/14 [History] Calcium Carbonate/Vitamin D3 [Calcium Carbonate/Vitamin D 1250 MG-200 Unit] 1 tab PO DAILY 03/25/14 [History] Multivit with Iron,Minerals [Flintstones Complete] 1 each PO DAILY 03/25/14 [History] Pantoprazole [ProTONIX] 40 mg PO DAILY 08/06/16 [History] dilTIAZem HCL [Dilt-Xr] 180 mg PO DAILY 08/06/16 [History] Aspirin 325 mg PO DAILY 06/10/19 [History] Cyclobenzaprine [Flexeril] 10 mg PO TID 03/07/20 [History] Levothyroxine 200 mcg PO ACBREAKFAST 03/07/20 [History] oxyCODONE HCl [Oxycontin] 5 mg PO Q4HR PRN 03/07/20 [History] hydroCHLOROthiazide [Hydrochlorothiazide] 12.5 mg PO DAILY 03/08/20 [History] Doxycycline [Vibramycin] 100 mg PO BID #36 cap 03/10/20 [Rx] Meloxicam 15 mg PO DAILY #30 tablet 03/10/20 [Rx] cephALEXin [Cephalexin] 500 mg PO BID #5 capsule 03/10/20 [Rx] dexAMETHasone [Dexamethasone] 4 mg PO DAILY #5 tablet 03/10/20 [Rx] Oxygen Therapy Mode: Room Air Patient Handouts: Acute Back Pain, Adult, Doxycycline tablets or capsules, Ehrlichiosis and Anaplasmosis Referrals: Brittany Miller CNM [Mid-] - 03/16/20 1:30 pm - Discharge Summary/Plan Comment DC Time >30 min.: No - Patient Data Vitals - Most Recent: Last Vital Signs Temp 35 C L 03/10/20 06:00 Pulse 84 03/10/20 06:00 Resp 16 03/10/20 06:00 BP 131/74 03/10/20 06:00 Pulse Ox 97 03/10/20 06:00 Weight - Most Recent: 166.741 kg I&O - Last 24 hours: Intake & Output 03/09/20 03/10/20 03/10/20 22:59 06:59 14:59 Intake Total 360 Output Total 2350 600 Balance -1989 Lab Results - Last 24 hrs: Laboratory Results - last 24 hr 03/10/20 03/10/20 Range/Units 04:30 04:30 WBC 3.7 L (4.5-11.0) K/uL RBC 4.34 (3.30-5.50) M/uL Hgb 11.9 L (12.0-15.0) g/dL Hct 35.8 L (36.0-48.0) % MCV 83 (80-98) fL MCH 27 (27-31) pg MCHC 33 (32-36) % Plt Count 135 L (150-400) K/uL Sodium 135 L (140-148) mmol/L Potassium 4.0 (3.6-5.2) mmol/L Chloride 101 (100-108) mmol/L Carbon Dioxide 26 (21-32) mmol/L Anion Gap 12.0 (5.0-14.0) mmol/L BUN 18 (7-18) mg/dL Creatinine 0.8 (0.6-1.0) mg/dL Est Cr Clr Drug Dosing 67.58 mL/min Estimated GFR (MDRD) > 60 (>60) Glucose 170 H (74-106) mg/dL Calcium 8.6 (8.5-10.1) mg/dL TYRESE Results - Last 24 hrs: Microbiology 03/07/20 19:04 Urine Culture - Final Urine, Clean Catch Proteus Mirabilis Med Orders - Current: Current Medications Acetaminophen (Tylenol) 650 mg PO Q4H PRN PRN Reason: Pain (Mild 1-3)/fever Last Admin: 03/10/20 02:50 Dose: 650 mg Documented by: Aspirin (Ecotrin) 325 mg PO DAILY [facility] Last Admin: 03/10/20 09:24 Dose: 325 mg Documented by: Buspirone HCl (Buspar) 10 mg PO BID [facility] Last Admin: 03/10/20 08:39 Dose: 10 mg Documented by: Cephalexin (Keflex) 500 mg PO BID [facility] Last Admin: 03/10/20 09:24 Dose: 500 mg Documented by: Cyclobenzaprine HCl (Flexeril) 10 mg PO Q8H PRN PRN Reason: Muscle Spasm Last Admin: 03/09/20 23:01 Dose: 10 mg Documented by: [facility] Last Admin: 03/10/20 08:39 Dose: 4 mg Documented by: Diltiazem HCl (Cardizem Cd) 180 mg PO DAILY [facility] Last Admin: 03/10/20 08:40 Dose: 180 mg Documented by: Doxycycline Hyclate (Vibramycin) 100 mg PO BID [facility] Last Admin: 03/10/20 08:39 Dose: 100 mg Documented by: Ibuprofen (Motrin) 600 mg PO Q6H PRN PRN Reason: Pain (moderate 4-6) Last Admin: 03/09/20 23:01 Dose: 600 mg Documented by: Lactobacillus Rhamnosus (Culturelle) 1 cap PO BID [facility] Last Admin: 03/10/20 08:39 Dose: 1 cap Documented by: Levothyroxine Sodium (Synthroid) 200 mcg PO ACBREAKFAST [facility] Last Admin: 03/10/20 07:41 Dose: 200 mcg Documented by: Magnesium Hydroxide (Milk Of Magnesia) 30 ml PO Q12H PRN PRN Reason: Constipation Last Admin: 03/10/20 08:48 Dose: 30 ml Documented by: Ondansetron HCl (Zofran) 4 mg IV Q6H PRN PRN Reason: Nausea/Vomiting Ondansetron HCl (Zofran Odt) 4 mg PO Q6H PRN PRN Reason: Nausea able to take PO Oxycodone HCl (Oxycodone) 5 - 10 mg PO Q4H PRN PRN Reason: Pain Last Admin: 03/09/20 19:44 Dose: 10 mg Documented by: Pantoprazole Sodium (Protonix) 40 mg PO BEDTIME [facility] Last Admin: 03/09/20 20:47 Dose: 40 mg Documented by: Senna/Docusate Sodium (Senna Plus) 1 tab PO BID PRN PRN Reason: Constipation Last Admin: 03/10/20 08:48 Dose: 1 tab Documented by: Sodium Chloride (Saline Flush) 10 ml FLUSH ASDIRECTED PRN PRN Reason: Keep Vein Open Last Admin: 03/07/20 19:15 Dose: 10 ml Documented by: Trolamine Salicylate (Aspercreme 10%) 0 gm TOP TID [facility] Last Admin: 03/10/20 08:39 Dose: 1 applic Documented by: Discontinued Medications Dexamethasone (Dexamethasone) 8 mg PO ONETIME ONE Stop: 03/08/20 13:31 Last Admin: 03/08/20 14:14 Dose: 8 mg Documented by: Hydromorphone HCl (Dilaudid) 1 mg IM ONETIME ONE Stop: 03/07/20 16:59 Last Admin: 03/07/20 17:07 Dose: 1 mg Documented by: Hydromorphone HCl (Dilaudid) 1 mg IVPUSH Q2H PRN PRN Reason: Pain (severe 7-10) Doxycycline Hyclate 100 mg/ (Sodium Chloride) 100 mls @ 100 mls/hr IV ONETIME ONE Stop: 03/07/20 19:58 Last Admin: 03/07/20 19:16 Dose: 100 mls/hr Documented by: Sodium Chloride (Normal Saline) 1,000 mls @ 125 mls/hr IV ASDIRECTED [facility] Last Admin: 03/08/20 07:46 Dose: 125 mls/hr Documented by: Potassium Chloride 20 meq/ (Premix) 100 mls @ 50 mls/hr IV ONETIME ONE Stop: 03/08/20 07:17 Last Admin: 03/08/20 06:03 Dose: 50 mls/hr Documented by: Doxycycline Hyclate 100 mg/ (Sodium Chloride) 100 mls @ 100 mls/hr IV Q12H [facility] Last Admin: 03/09/20 08:14 Dose: 100 mls/hr Documented by: Potassium Chloride/Sodium Chloride (Normal Saline With 20 Meq Kcl) 1,000 mls @ 100 [facility] Last Admin: 03/09/20 01:58 Dose: 100 mls/hr Documented by: Sodium Chloride (Normal Saline) 500 mls @ 500 mls/hr IV ASDIRECTED [facility] Stop: 03/08/20 15:16 Last Admin: 03/08/20 14:20 Dose: 500 mls/hr Documented by: Ketorolac Tromethamine (Toradol) 60 mg IM ONETIME ONE Stop: 03/07/20 18:26 Last Admin: 03/07/20 18:31 Dose: 60 mg Documented by: Ketorolac Tromethamine (Toradol) 30 mg IVPUSH Q6H PRN PRN Reason: Pain (moderate 4-6) Ketorolac Tromethamine (Toradol) 30 mg IVPUSH Q6H PRN PRN Reason: Pain (moderate 4-6) Last Admin: 03/08/20 02:03 Dose: 30 mg Documented by: Lidocaine HCl (Xylocaine-Mpf 1%) 2 ml INJECT ONETIME ONE Stop: 03/08/20 05:20 Last Admin: 03/08/20 06:03 Dose: 2 ml Documented by: Lorazepam (Ativan) 1 mg PO ONETIME ONE Stop: 03/07/20 16:59 Last Admin: 03/07/20 17:06 Dose: 1 mg Documented by: Pantoprazole Sodium (Protonix) 40 mg PO ACBREAKFAST JUAN LUIS Potassium Chloride (Klor-Con M20) 40 meq PO ONETIME ONE Stop: 03/08/20 05:19 Last Admin: 03/08/20 05:39 Dose: 40 meq Documented by: Tizanidine HCl (Zanaflex) 4 mg PO Q6H PRN PRN Reason: Muscle Spasm Last Admin: 03/08/20 12:49 Dose: 4 mg Documented by:
== END 2020-03-10 14:32 | disposition home or self-care (01) ==
LOC: JP.ED 15:45 → JP.MS 19:56
PROVIDERS: ADMIT Internal Medicine; ATTEND Internal Medicine
DX: M51.16 Intervertebral disc disorders with radiculopathy, lumbar region (principal); K62.89 Other specified diseases of anus and rectum; N30.00 Acute cystitis without hematuria; E66.9 Obesity, unspecified; I10 Essential (primary) hypertension; E87.6 Hypokalemia; Z79.899 Other long term (current) drug therapy; Z68.44 Body mass index [BMI] 60.0-69.9, adult
CPT/HCPCS: 36415; 51798; 71046; 72131; 80048; 80053; 81001; 83605; 83690; 84484; 85025; 85027; 86140; 87086; 87088; 87186; 93005; 96361; 96365; 96366; 96367; 96372; 96375; 97116; 97162; 97535; 99285; A9270; G0378; J1170; J1885; J2001; J3480; J3490; J7030; J7050; J8540; 93010; 99217; 99218; 99224; 99225; 99284

== ENCOUNTER 2020-04-16 09:59 | Emergency (ER) | payer BC ==
[2020-04-16] MEDS ORDERED: HYDROmorphone 1 MG/ML Syringe IM ONE (10:51)
--- NOTE | 2020-04-16 10:57 | EDM.PDOC ---
ED HPI GENERAL MEDICAL PROBLEM - General Chief Complaint: Back Pain or Injury Stated Complaint: [facility] Time Seen by Provider: 04/16/20 10:35 Source of Information: Reports: Patient, EMS, Family History Limitations: Reports: No Limitations - History of Present Illness INITIAL COMMENTS - FREE TEXT/NARRATIVE: 60-year-old female with intense lower back pain and spasms, lower extremity paresthesias and numbness and loss of sensation of urination as well as some numbness across her lower abdomen. She was evaluated for spinal stenosis and lower extremity paresthesias yesterday in the neurosurgery clinic in [place], and was told that if things change she should return. Overnight they have gotten much worse, her numbness is now localized in the inner aspect of her legs, she is too weak to stand, is having increased spasms and came in by ambulance. No fevers or chills, no other trauma such as falls. Onset: Gradual Duration: Other (Marked worsening over the past 24 hours) Location: Reports: Back, Lower Extremity, Left, Lower Extremity, Right Improves with: Reports: None Worsens with: Reports: Other (Attempting to stand), Movement Associated Symptoms: Reports: Other (Significant paresthesias of the lower abdomen, pelvis and lower extremities) Right Leg Pain Score (Numeric/FACES): 6 Abdomen Pain Score (Numeric/FACES): 6 - Related Data Allergies Allergy/AdvReac Type Severity Reaction Status Date / Time erythromycin base Allergy Nausea Verified 04/16/20 10:14 hydrocodone Allergy Hallucinati Verified 04/16/20 10:14 ons oxycodone Allergy Hallucinati Verified 04/16/20 10:14 ons Home Meds: Home Meds busPIRone [Buspar] 10 mg PO BID 06/08/13 [History] Ascorbic Acid [C-1000] 1,000 mg PO DAILY 03/25/14 [History] Calcium Carbonate/Vitamin D3 [Calcium Carbonate/Vitamin D 1250 MG-200 Unit] 1 tab PO DAILY 03/25/14 [History] Multivit with Iron,Minerals [Flintstones Complete] 1 each PO DAILY 03/25/14 [History] Pantoprazole [ProTONIX] 40 mg PO DAILY 08/06/16 [History] dilTIAZem HCL [Dilt-Xr] 180 mg PO DAILY 08/06/16 [History] Aspirin 325 mg PO DAILY 06/10/19 [History] Levothyroxine 200 mcg PO ACBREAKFAST 03/07/20 [History] hydroCHLOROthiazide [Hydrochlorothiazide] 12.5 mg PO DAILY 03/08/20 [History] Gabapentin [Neurontin] 300 mg PO BEDTIME 04/16/20 [History] Past Medical History HEENT History: Reports: Cataract, Impaired Vision Cardiovascular History: Reports: Afib, Hypertension Other Cardiovascular History: new onset afib 09/07/15. Gastrointestinal History: Reports: Cholelithiasis Musculoskeletal History: Reports: Back Pain, Chronic, Fracture Psychiatric History: Reports: Anxiety Endocrine/Metabolic History: Reports: Hypothyroidism, Obesity/BMI 30+, Other (See Below) Other Endocrine/Metabolic History: Graves Disease Dermatologic History: Reports: Cellulitis - Infectious Disease History Infectious Disease History: Reports: Chicken Pox - Past Surgical History HEENT Surgical History: Reports: Other (See Below) Endocrine Surgical History: Reports: Thyroidectomy Musculoskeletal Surgical History: Reports: Knee Replacement Social & Family History - Family History Family Medical History: Noncontributory - Tobacco Use Smoking Status *Q: Never Smoker - Caffeine Use Caffeine Use: Reports: None Caffeine Use Comment: once in a while for coffee and pop - Recreational Drug Use Recreational Drug Use: No - Living Situation & Occupation Living situation: Reports: Occupation: Employed ED ROS GENERAL - Review of Systems Review Of Systems: See Below Constitutional: Denies: Fever, Chills HEENT: Reports: No Symptoms Respiratory: Denies: Shortness of Breath Cardiovascular: Denies: Chest Pain GI/Abdominal: Denies: Abdominal Pain, Nausea, Vomiting : Reports: Other (She is not incontinent but does not feel the sensation to urinate). Denies: Incontinence, Urinary Retention Skin: Reports: No Symptoms. Denies: Rash Neurological: Reports: Other (See HPI) ED EXAM,LOWER BACK PAIN/INJURY - Physical Exam Exam: See Below Exam Limited By: No Limitations General Appearance: Alert, Moderate Distress, Other (Screaming and crying in pain, uncomfortable) Eye Exam: Bilateral Eye: Normal Inspection Neck: Normal Inspection, Supple Respiratory/Chest: No Respiratory Distress, Lungs Clear Cardiovascular: Regular Rate, Rhythm GI/Abdominal: Non-Tender Back Exam: Other (Difficult to examine the back because any movement or palpation of the lower back causes her to cry and wince in pain) Extremities: Other (Unable to hold legs up against gravity, symmetric decreased sensation on the inner aspect of the legs and feet bilaterally) Course - Vital Signs Last Recorded V/S: Last Vital Signs Temp 96.9 F 04/16/20 10:20 Pulse 72 04/16/20 11:04 Resp 22 H 04/16/20 10:20 BP 114/74 04/16/20 11:04 Pulse Ox 89 L 04/16/20 11:04 - Orders/Labs/Meds Meds: Medications Discontinued Medications Generic Name Dose Route Start Last Admin Trade Name Jovi PRN Reason Stop Dose Admin Hydromorphone HCl 1 mg 04/16/20 10:51 04/16/20 10:55 Dilaudid IM 04/16/20 10:52 1 mg ONETIME ONE Administration Lorazepam 1 mg 04/16/20 11:06 04/16/20 11:13 Ativan IVPUSH 04/16/20 11:07 1 mg ONETIME ONE Administration - Re-Assessments/Exams Free Text/Narrative Re-Assessment/Exam: 04/16/20 10:57 Only a brief exam was done because neurosurgical involvement. Her findings and her presentation with the nurse practitioner from neurosurgery who saw her yesterday. Her recommendations were to transfer for further evaluation and possible inpatient treatment of her symptoms. Dr. Pedro, emergency room, accepted the patient at 10:45 AM. She was given 1 g of IM Dilaudid, a saline lock was started and we may have to add Ativan prior to discharge and transfer. Departure - Departure Time of Disposition: 11:40 Disposition: DC/T[facility] to [facility] 02 Clinical Impression: Lumbar disc disease with radiculopathy Spinal stenosis Qualifiers: Spinal region: lumbosacral Qualified Code(s): M48.07 - Spinal stenosis, lumbosacral region - Discharge Information Referrals: PCP,None [Primary Care Provider] - Forms: ED Department Discharge Sepsis Event Note (ED) - Evaluation Sepsis Screening Result: No Definite Risk - Focused Exam Vital Signs: Vital Signs Temp Pulse Resp BP Pulse Ox 04/16/20 11:04 72 114/74 89 L 04/16/20 10:34 90 125/69 100 04/16/20 10:20 96.9 F 95 22 H 132/78 100 04/16/20 10:09 96.9 F 95 22 H 132/78 100
[2020-04-16] MEDS ORDERED: LORazepam 2 MG/ML SDV IVPUSH ONE (11:06)
[2020-04-16 11:16] VITALS: BP 114/74; PULSE 72
== END 2020-04-16 11:40 ==
LOC: JP.ED 09:59
DX: M51.16 Intervertebral disc disorders with radiculopathy, lumbar region (principal); M48.07 Spinal stenosis, lumbosacral region; E03.9 Hypothyroidism, unspecified; F41.9 Anxiety disorder, unspecified; I10 Essential (primary) hypertension; I48.91 Unspecified atrial fibrillation; E66.9 Obesity, unspecified; Z68.43 Body mass index [BMI] 50.0-59.9, adult; Z79.82 Long term (current) use of aspirin; Z79.899 Other long term (current) drug therapy; Z88.1 Allergy status to other antibiotic agents; Z88.5 Allergy status to narcotic agent
CPT/HCPCS: 96372; 96374; 99284; J1170; J2060

== ENCOUNTER 2020-06-15 19:01 | Emergency (ER) | payer BC ==
[2020-06-15 19:24] VITALS: BP 169/83; PULSE 107
[2020-06-15] MEDS ORDERED: cefTRIAXone 1 GM, Lidocaine 1% 2.1 ML IM ONE ×2 (20:54)
--- NOTE | 2020-06-15 21:01 | EDM.PDOC ---
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 A PICC line was removed 2 days ago and her antibiotics stopped within the last week. She was told that if she develops any fever, chills, or other symptoms she should be rechecked. Over the last 24 to 48 hours she has developed low-grade fevers and increasing right knee pain, and it feels "hot". No cough or shortness of breath, no nausea or vomiting. Her back pain and lower extremity and saddle paresthesias are unchanged. Onset: Gradual (Over the past 48 hours) Location: Reports: Lower Extremity, Right (Her right knee is the source of the most pain) Associated Symptoms: Reports: Fever/Chills, Malaise, Weakness. Denies: Chest Pain, Shortness of Breath right knee Pain Score (Numeric/FACES): 10 - Related Data Allergies Allergy/AdvReac Type Severity Reaction Status Date / Time erythromycin base Allergy Nausea Verified 06/15/20 19:28 hydrocodone Allergy Hallucinati Verified 06/15/20 19:28 ons oxycodone Allergy Hallucinati Verified 06/15/20 19:28 ons Home Meds: Home Meds busPIRone [Buspar] 10 mg PO TID 06/08/13 [History] Ascorbic Acid [C-1000] 1,000 mg PO DAILY 03/25/14 [History] Calcium Carbonate/Vitamin D3 [Calcium Carbonate/Vitamin D 1250 MG-200 Unit] 1 tab PO DAILY 03/25/14 [History] Multivit with Iron,Minerals [Flintstones Complete] 1 each PO DAILY 03/25/14 [History] Pantoprazole [ProTONIX] 40 mg PO DAILY 08/06/16 [History] dilTIAZem HCL [Dilt-Xr] 180 mg PO DAILY 08/06/16 [History] Aspirin 325 mg PO DAILY 06/10/19 [History] Levothyroxine 200 mcg PO ACBREAKFAST 03/07/20 [History] hydroCHLOROthiazide [Hydrochlorothiazide] 12.5 mg PO DAILY 03/08/20 [History] Gabapentin [Neurontin] 600 mg PO BEDTIME 04/16/20 [History] Acetaminophen [Tylenol Extra Strength] 1,000 mg PO TID 06/15/20 [History] Past Medical History HEENT History: Reports: Cataract, Impaired Vision Cardiovascular History: Reports: Afib, Hypertension Other Cardiovascular History: new onset afib 09/07/15. secondary to graves disease Gastrointestinal History: Reports: Cholelithiasis, GERD Genitourinary History: Reports: UTI, Recurrent Musculoskeletal History: Reports: Arthritis, Back Pain, Chronic, Fracture Psychiatric History: Reports: Anxiety Endocrine/Metabolic History: Reports: Hypothyroidism, Obesity/BMI 30+, Other (See Below) Other Endocrine/Metabolic History: Graves Disease Dermatologic History: Reports: Cellulitis - Infectious Disease History Infectious Disease History: Reports: Chicken Pox, Measles, Mumps - Past Surgical History GI Surgical History: Reports: Cholecystectomy, Colonoscopy Endocrine Surgical History: Reports: Thyroidectomy Musculoskeletal Surgical History: Reports: Knee Replacement Social & Family History - Family History Family Medical History: Noncontributory - Tobacco Use Smoking Status *Q: Never Smoker - Caffeine Use Caffeine Use: Reports: Tea Caffeine Use Comment: once in a while for coffee and pop - Recreational Drug Use Recreational Drug Use: No - Living Situation & Occupation Living situation: Reports: Occupation: Employed ED ROS GENERAL - Review of Systems Review Of Systems: See Below Constitutional: Reports: Fever, Chills, Malaise HEENT: Reports: No Symptoms Respiratory: Denies: Shortness of Breath Cardiovascular: Denies: Chest Pain GI/Abdominal: Denies: Abdominal Pain : Reports: Incontinence, Urgency Musculoskeletal: Reports: Other (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, marked increase in pain in the right knee over 48 hours) Skin: Denies: Erythema Neurological: Reports: Paresthesia (Numbness and paresthesias of the lower extremities and pelvis area which is chronic) ED EXAM, GENERAL - Physical Exam Exam: See Below Exam Limited By: No Limitations General Appearance: Alert, No Apparent Distress, Anxious Eye Exam: Bilateral Eye: Normal Inspection Head: Atraumatic Neck: Supple Respiratory/Chest: Lungs Clear Cardiovascular: Regular Rate, Rhythm, Tachycardia (Mild tachycardia) GI/Abdominal: Non-Tender Extremities: Other (Very tender right knee to palpation around the patella, medial and lateral joint line especially medially. She has increased pain with stressing the medial collateral ligament. It feels warm to touch but it is not red and there is no effusion) Course - Vital Signs Last Recorded V/S: Last Vital Signs Temp 99.7 F 06/15/20 19:33 Pulse 107 H 06/15/20 19:33 Resp 22 H 06/15/20 19:33 BP 169/83 H 06/15/20 19:33 Pulse Ox 99 06/15/20 19:33 - Orders/Labs/Meds Orders: Active Orders 24 hr Category Date Time Status Consult to Orthopedic Clinic [CONS] Routine Cons 06/15/20 20:53 Active CULTURE URINE [RM] Stat Lab 06/15/20 21:06 Received Labs: Laboratory Tests 06/15/20 06/15/20 06/15/20 Range/Units 20:11 20:11 20:15 WBC 6.9 (4.5-11.0) K/uL RBC 4.37 (3.30-5.50) M/uL Hgb 12.5 (12.0-15.0) g/dL Hct 39.1 (36.0-48.0) % MCV 90 (80-98) fL MCH 29 (27-31) pg MCHC 32 (32-36) % Plt Count 207 (150-400) K/uL Neut % (Auto) 73 H (36-66) % Lymph % (Auto) 12 L (24-44) % Millard % (Auto) 14 H (2-6) % Eos % (Auto) 1 L (2-4) % Baso % (Auto) 0 (0-1) % Sodium 139 L (140-148) mmol/L Potassium 3.7 (3.6-5.2) mmol/L Chloride 103 (100-108) mmol/L Carbon Dioxide 29 (21-32) mmol/L Anion Gap 10.7 (5.0-14.0) mmol/L BUN 19 H (7-18) mg/dL Creatinine 0.7 (0.6-1.0) mg/dL Est Cr Clr Drug Dosing 75.65 mL/min Estimated GFR (MDRD) > 60 (>60) Glucose 117 H (74-106) mg/dL Calcium 9.3 (8.5-10.1) mg/dL C-Reactive Protein 2.07 H (0.0-0.3) mg/dL Urine Color Yellow (YELLOW) Urine Appearance Clear (CLEAR) Urine pH 7.5 (5.0-8.0) Ur Specific Dowell 1.025 (1.008-1.030) Urine Protein Negative (NEGATIVE) mg/dL Urine Glucose (UA) Negative (NEGATIVE) mg/dL Urine Ketones Negative (NEGATIVE) mg/dL Urine Occult Blood Trace-intact H (NEGATIVE) Urine Nitrite Negative (NEGATIVE) Urine Bilirubin Negative (NEGATIVE) Urine Urobilinogen 1.0 (0.2-1.0) EU/dL Ur Leukocyte Esterase Trace H (NEGATIVE) Urine RBC 5-10 H (0-5) Urine WBC 20-30 H (0-5) Ur Epithelial Cells Rare Amorphous Sediment Not seen Urine Bacteria Many Urine Mucus Not seen Meds: Medications Discontinued Medications Generic Name Dose Route Start Last Admin Trade Name Freq PRN Reason Stop Dose Admin Ceftriaxone Sodium 1 gm/ 0 gm 06/15/20 20:54 06/15/20 21:06 Lidocaine HCl 2.1 ml IM 06/15/20 20:55 1 inj ONETIME ONE Administration - Re-Assessments/Exams Free Text/Narrative Re-Assessment/Exam: 06/15/20 20:59 CRP was obtained and is 2.04. White count is normal. Mini cath UA was done and shows many bacteria, WBCs so there is a cystitis. She was given 1 g of IM Rocephin, and I consulted Dr. Marquez to see the patient tomorrow to consider an aspiration of the right knee. She will be discharged with 10 doses of ketorolac for pain control, and further antibiotics will be dependent on her knee exam tomorrow. 06/15/20 21:01 Urine culture was also ordered. Departure - Departure Time of Disposition: 21:20 Disposition: Home, Self-Care 01 Clinical Impression: UTI (urinary tract infection) Qualifiers: Urinary tract infection type: acute cystitis Hematuria presence: with hematuria Qualified Code(s): N30.01 - Acute cystitis with hematuria Right knee pain Qualifiers: Chronicity: acute Qualified Code(s): M25.561 - Pain in right knee Fever Qualifiers: Encounter type: initial encounter - Discharge Information Instructions: Urinary Tract Infection, Adult Referrals: Brittany Miller CNM [Primary Care Provider] - Forms: ED Department Discharge Care Plan Goals: Use ketorolac as directed for pain and continue your other medications. Call Dr. Marquez's office in the morning for an appointment time to reassess your right knee. Sepsis Event Note (ED) - Evaluation Sepsis Screening Result: Possible Sepsis Risk - Focused Exam Vital Signs: Vital Signs Temp Pulse Resp BP Pulse Ox 06/15/20 19:33 99.7 F 107 H 22 H 169/83 H 99 06/15/20 19:23 99.7 F 107 H 22 H 169/83 H 99 - My Orders Last 24 Hours: My Active Orders 06/15/20 20:53 Consult to Orthopedic Clinic [CONS] Routine 06/15/20 21:06 CULTURE URINE [RM] Stat - Assessment/Plan Last 24 Hours: My Active Orders 06/15/20 20:53 Consult to Orthopedic Clinic [CONS] Routine 06/15/20 21:06 CULTURE URINE [RM] Stat
== END 2020-06-15 21:20 | disposition home or self-care (01) ==
LOC: JP.ED 19:01
DX: N30.01 Acute cystitis with hematuria (principal); M25.561 Pain in right knee; I48.91 Unspecified atrial fibrillation; I10 Essential (primary) hypertension; K21.9 Gastro-esophageal reflux disease without esophagitis; M19.90 Unspecified osteoarthritis, unspecified site; E03.9 Hypothyroidism, unspecified; F41.9 Anxiety disorder, unspecified; E66.9 Obesity, unspecified; Z68.43 Body mass index [BMI] 50.0-59.9, adult; Z88.1 Allergy status to other antibiotic agents; Z88.5 Allergy status to narcotic agent; Z79.82 Long term (current) use of aspirin; Z79.899 Other long term (current) drug therapy
CPT/HCPCS: 36415; 80048; 81001; 85025; 86140; 87086; 87088; 87186; 96372; 99284; J0696; J2001

== ENCOUNTER 2021-08-12 07:02 | Day surgery (SDC) | payer BC ==
[~2021-08-12 07:02] MED LIST: Sodium Chloride 0.9% 1,000 ML IV SCH
[2021-08-12] MEDS ORDERED: fentaNYL 100 MCG/2 ML SDV ONE (07:39)
[2021-08-12] MEDS ORDERED: Midazolam 1 MG/ML 2 ML SDV ONE (07:39)
[2021-08-12] MEDS ORDERED: Propofol 200 MG/20 ML SDV ONE (07:39)
[2021-08-12 10:12] VITALS: BP 119/73; PULSE 65
--- NOTE | 2021-08-12 10:28 | OR ---
DATE OF PROCEDURE: 08/12/2021 SURGEON: Jarad Kern MD PROCEDURE: Colonoscopy. FINDINGS: Diverticulosis, moderate. COMPLICATIONS: None. ELECTRIC FURNACE OPERATOR: None. ANESTHESIA: MAC. PREOPERATIVE DIAGNOSIS: Screening colonoscopy. POSTOPERATIVE DIAGNOSIS: Screening colonoscopy. RISKS: Risks, benefits, alternatives, and limitations including, but not limited to infection, bleeding, perforation, false positive, false negatives were explained to the patient who wished to proceed. PROCEDURE IN DETAIL: The patient was placed in left lateral decubitus position. Digital rectal exam was performed without abnormality. It showed small external hemorrhoids. Scope was introduced and advanced atraumatically to the ileocecal valve. A photo was taken of the appendiceal orifice. Scope was brought back to the ascending, transverse, descending colon, and retroflexed. No evidence of old or new blood. No masses. No polyps. The diverticulosis was described as mild, limited to sigmoid colon without evidence of diverticula or bleeding. Greater than 8 minutes was spent removing the scope. No abnormalities on retroflexion. Prep was marginal with some solid and liquid stool remaining, possibly missing polyps approximately 5 mm. Jarad Kern MD /[id number]
== END 2021-08-12 10:33 | disposition home or self-care (01) ==
LOC: JP.SDS 07:02
PROVIDERS: ATTEND Surgery
DX: Z12.11 Encounter for screening for malignant neoplasm of colon (principal); K57.30 Diverticulosis of large intestine without perforation or abscess without bleeding; G47.33 Obstructive sleep apnea (adult) (pediatric); I10 Essential (primary) hypertension; I48.91 Unspecified atrial fibrillation; Z88.8 Allergy status to other drugs, medicaments and biological substances
CPT/HCPCS: 45378; J2250; J2704; J3010; J7030

== ENCOUNTER 2025-02-08 11:50 | Emergency (ER) | payer OTHER ==
[2025-02-08 12:07] VITALS: BP 142/66; PULSE 67
[2025-02-08] MEDS ORDERED: Lidocaine 1% 10 ML MDV INJECT ONE (12:16)
== END 2025-02-08 13:18 | disposition home or self-care (01) ==
LOC: JP.ED 11:50
DX: S61.012A Laceration without foreign body of left thumb without damage to nail, initial encounter (principal); I48.91 Unspecified atrial fibrillation; I10 Essential (primary) hypertension; E03.9 Hypothyroidism, unspecified; Z79.82 Long term (current) use of aspirin; Z79.890 Hormone replacement therapy; Z79.899 Other long term (current) drug therapy; Z88.1 Allergy status to other antibiotic agents; W26.0XXA Contact with knife, initial encounter; Y93.89 Activity, other specified
CPT/HCPCS: 12001; 99282